=== PATIENT | female | born 1945 | race Caucasian/White ===

== ENCOUNTER 2017-10-22 13:43 | Inpatient (IN) | payer MEDICARE ==
[2017-10-22 17:29] LABS: ABS Basophils 0.1 10^3/ul (0-0.2); ABS Eosinophils 0 10^3/ul (0-0.6); ABS Lymphocytes 1.8 10^3/ul (1.0-4.8); ABS Monocytes 0.8 10^3/ul (0-0.8); ABS Neutrophils 8.3 10^3/ul (1.5-7.7); ABS Nucleated RBC 0 10^3/ul; Eosinophil % 0.4 % (0-6); Hematocrit 40 % (35-47); Hemoglobin 13.2 g/dl (12.0-16.0); Lymphocyte % 16.5 % (25-47); Mean Corpuscular HGB Conc 34 g/dl (31-36); Mean Corpuscular Hemoglobin 29 pg (27-31); Mean Corpuscular Volume 85 fL (80-97); Mean Platelet Volume 8.3 um3 (7.4-10.4); Nucleated Red Blood Cells % 0; Platelet Count 280 10^3/ul (150-450); Red Blood Count 4.62 10^6/ul (4.0-5.4); Red Cell Distribution Width 14 % (10.5-15)
[2017-10-22 17:47] LABS: EGFR Non-African American 69.7 (>60)
--- NOTE | 2017-10-22 17:48 | RAD ---
Indication: Small bowel obstruction CT of the abdomen and pelvis was performed in the oral or IV contrast administration. Coronal and sagittal reconstructed images were obtained. Lung bases demonstrate no pleural fluid, nodules or masses. Heart is of normal size without evidence of pericardial effusion. Liver is normal in size. No focal lesions or intrahepatic ductal dilatation is noted. Gallbladder demonstrates no calcified gallstones. No pericholecystic fluid or wall thickening is identified. Common duct is not dilated. Pancreas demonstrates no mass or pancreatic duct dilatation. The spleen is normal in size. No adrenal masses are noted. The kidneys demonstrates no definite hydronephrosis. No focal masses are noted. Atherosclerotic aorta without evidence of aneurysmal dilatation is noted. There are postoperative changes noted in the right lobe were quadrant. Dilated loops of small bowel are noted with a zone of transition arising from this area. Findings are consistent with small bowel obstruction. Diverticulosis without definite evidence of diverticulitis is noted. Appendix is visualized and is normal. IMPRESSION: Postoperative changes. There are dilated loops of small bowel noted with zone of transition presumably just to the right of midline. Normal appendix. No other masses or fluid collections are noted.
[2017-10-22 18:51] LABS: Urine Appearance Cloudy; Urine Blood 2+ (Negative); Urine Color Yellow; Urine Ketones Trace (Negative); Urine Protein 1+(30 mg/dL) (Negative); Urine Specific Gravity 1.027 (1.010-1.030); Urine Urobilinogen Positive (Negative)
[2017-10-22] MEDS ORDERED: Morphine VIAL* 4 MG/ML VIAL (1 ml vial) IV PRN ×2 (19:46→23:23)
[2017-10-22] MEDS ORDERED: Ondansetron INJ* 2 MG/ML VIAL IV PRN (20:04)
[2017-10-22] MEDS: NS 0.9% 1000 ML* 1,000 ML IV SCH ×2 (20:34→21:18)
--- NOTE | 2017-10-22 21:03 | ED ---
Ruiz Gates Thomas, scribed for Rubin Robles MD on 10/22/17 at 1738 . Abdominal Pain/Female - HPI Summary HPI Summary: The patient is a 70 year old female complaining of upper abdominal pain that began last night at 23:30. The pain comes in waves and it kept her up most of the night. The pain radiates to her back. The pain is worse when she lies down. She had some vomiting. The patient has a history of multiple obstructions, although she states that her current pain is somewhat different from her normal blockage pain. She notes that she has been belching today and she has passed some gas today. She last had a BM yesterday. - History of Current Complaint Chief Complaint: EDAbdPain Stated Complaint: ABD PAIN/VOMITING Time Seen by Provider: 10/22/17 16:50 Hx Obtained From: Patient Onset/Duration: Lasting Hours, Still Present Timing: Intermittent Episode Lasting - odilon comes in waves Severity Currently: Severe Pain Intensity: 8 Pain Scale Used: 0-10 Numeric Location: Other - Upper abd Radiates: Yes Radiates to: Back Associated Signs and Symptoms: Positive: Vomiting Allergies/Adverse Reactions: Allergies Allergy/AdvReac Type Severity Reaction Status Date / Time duloxetine [From Cymbalta] Allergy See Comment Verified 10/22/17 14:03 surgical tape Allergy Severe rash Uncoded 10/22/17 14:03 severe itching Home Medications: Home Medications Chlorthalidone TAB* [Hygroton TAB*] 12.5 mg PO DAILY 10/22/17 [History Confirmed 10/22/17] Cholecalciferol TAB* [Vitamin D TAB*] 1,000 unit PO DAILY 10/22/17 [History Confirmed 10/22/17] Levothyroxine TAB* [Synthroid TAB*] 50 mcg PO DAILY 10/22/17 [History Confirmed 10/22/17] Losartan TAB* [Cozaar TAB*] 50 mg PO DAILY 10/22/17 [History Confirmed 10/22/17] Magnesium Oxide [Magnesium] 250 mg PO DAILY 10/22/17 [History Confirmed 10/22/17 ] Omeprazole CAP* [Prilosec CAP* 20 MG] 20 mg PO DAILY 10/22/17 [History Confirmed 10/22/17] Turmeric [Curcumin] 1 cap PO DAILY 10/22/17 [History Confirmed 10/22/17] PMH/Surg Hx/FS Hx/Imm Hx Endocrine/Hematology History: Reports: Hx Thyroid Disease Denies: Hx Diabetes, Hx Unexplained Bleeding Cardiovascular History: Reports: Hx Hypertension - ON MEDICATION Denies: Hx Congestive Heart Failure, Hx Pacemaker/ICD, Other Cardiovascular Problems/Disorders Respiratory History: Denies: Hx Asthma GI History: Reports: Hx Diverticulosis, Hx Gall Bladder Disease - 05/15 convenient care said "[place]" sent her to [facility], Hx Gastrointestinal Bleed , Hx Hiatal Hernia - possibly, pt unsure, Hx Obstructive Bowel, Other GI Disorders - DIVERTICULITIS Denies: Hx Cirrhosis, Hx Crohn's Disease, Hx Irritable Bowel, Hx Jaundice, Hx Ileostomy, Hx Pyloric Stenosis, Hx Ulcer History: Denies: Hx Renal Disease Musculoskeletal History: Reports: Other Musculoskeletal History - occassional joint pain Sensory History: Reports: Hx Contacts or Glasses Denies: Hx Hearing Aid Opthamlomology History: Reports: Hx Contacts or Glasses Neurological History: Reports: Hx Headaches, Hx Migraine, Other Neuro Impairments/Disorders - pt reports sciatic pain at times Psychiatric History: Reports: Hx Anxiety, Hx Depression, Hx Post Traumatic Stress Disorder, Hx Inpatient Treatment - [facility], many yrs ago Denies: Hx Panic Disorder, Hx Schizophrenia, Hx Suicide Attempt, Hx Substance Abuse, Other Psychiatric Issues/Disorders - Surgical History Surgery Procedure, Year, and Place: HYSTERECTOMY, APPENDECTOMY,bowel resection, t&a Infectious Disease History: No Infectious Disease History: Denies: Hx Hepatitis, Traveled Outside the [place] in Last 30 Days - Family History Known Family History: Positive: Hypertension - Social History Alcohol Use: Occasionally Substance Use Type: Reports: Prescribed Smoking Status (MU): Former Smoker Review of Systems Negative: Fever Positive: Abdominal Pain - upper, Vomiting All Other Systems Reviewed And Are Negative: Yes Physical Exam - Summary Physical Exam Summary: Appearance: The patient is well-nourished in no acute distress and in no acute pain. Skin: The skin is warm and dry and skin color reflects adequate perfusion. HEENT: The head is normocephalic and atraumatic. The pupils are equal and reactive. The conjunctivae are clear and without drainage. Nares are patent and without drainage. Mouth reveals moist mucous membranes and the throat is without erythema and exudate. The external ears are intact. The ear canals are patent and without drainage. The tympanic membranes are intact. Neck: the neck is supple with full range of motion and non-tender. There are no carotid bruits. There is no neck vein distension. Respiratory: Chest is non-tender. Lungs are clear to auscultation and breath sounds are symmetrical and equal. Cardiovascular: Heart is regular rate and rhythm. There is no murmur or rub auscultated. There is no peripheral edema and pulses are symmetrical and equal. Abdomen: The abdomen is soft. She has some diffuse tenderness. There may be some rebound, but it is hard to tell. There are normal bowel sounds heard in all four quadrants and there is no organomegaly palpated. Musculoskeletal: There is no back tenderness noted. Extremities are non-tender with full range of motion. There is good capillary refill. There is no peripheral edema or calf tenderness elicited. Neurological: Patient is alert and oriented to person, place and time. The patient has symmetrical motor strength in all four extremities. Cranial nerves are grossly intact. Deep tendon reflexes are symmetrical and equal in all four extremities. Psychiatric: The patient has an appropriate affect and does not exhibit any anxiety or depression. Triage Information Reviewed: Yes Vital Signs On Initial Exam: Initial Vitals Temp Pulse Resp BP Pulse Ox 97.7 F 95 14 144/76 95 10/22/17 14:03 10/22/17 14:03 10/22/17 14:03 10/22/17 14:03 10/22/17 14:03 Vital Signs Reviewed: Yes Diagnostics - Vital Signs Vital Signs Temp Pulse Resp BP Pulse Ox 10/22/17 16:47 98.9 F 10/22/17 15:59 97.4 F 102 18 143/91 99 10/22/17 14:03 97.7 F 95 14 144/76 95 - Laboratory Lab Results: Lab Results 10/22/17 Range/Units 17:16 WBC 11.0 H (3.5-10.8) 10^3/ul RBC 4.62 (4.0-5.4) 10^6/ul Hgb 13.2 (12.0-16.0) g/dl Hct 40 (35-47) % MCV 85 (80-97) fL MCH 29 (27-31) pg MCHC 34 (31-36) g/dl RDW 14 (10.5-15) % Plt Count 280 (150-450) 10^3/ul MPV 8.3 (7.4-10.4) um3 Neut % (Auto) 75.1 (38-83) % Lymph % (Auto) 16.5 L (25-47) % [place] % (Auto) 6.9 (0-7) % Eos % (Auto) 0.4 (0-6) % Baso % (Auto) 1.1 (0-2) % Absolute Neuts (auto) 8.3 H (1.5-7.7) 10^3/ul Absolute Lymphs (auto) 1.8 (1.0-4.8) 10^3/ul Absolute Monos (auto) 0.8 (0-0.8) 10^3/ul Absolute Eos (auto) 0 (0-0.6) 10^3/ul Absolute Basos (auto) 0.1 (0-0.2) 10^3/ul Absolute Nucleated RBC 0 10^3/ul Nucleated RBC % 0 Result Diagrams: 10/22/17 17:16 10/22/17 17:16 Lab Statement: Any lab studies that have been ordered have been reviewed, and results considered in the medical decision making process. - CT CT Abdomen/Pelvis CT Interpretation: No Acute Changes - IMPRESSION: Postoperative changes. There are dilated loops of small bowel noted with zone of transition presumably just to the right of midline. Normal appendix. No other masses or fluid collections are noted. Dr. Robles has reviewed this report. CT Interpretation Completed By: Radiologist - EKG 20:12 Cardiac Rate: NL EKG Rhythm: Sinus Rhythm - at 81 BPM EKG Interpretation: RBBB. Re-Evaluation - Re-Evaluation First Eval Re-Evaluation Time: 20:16 Comment: Results discussed. Patient will be admitted to Dr. Ziegler. Abdominal Pain Fem Course/Dx - Course Course Of Treatment: MS. Villa has a history of SBO's and came in at the first sign this time. She was found to have an early SBO and will be admitted by the Hospitalist service for conservative treatment. - Diagnoses Provider Diagnoses: SBO (small bowel obstruction) - Provider Notifications Discussed Care Of Patient With: Adriana Ziegler Time Discussed With Above Provider: 20:16 Instructed by Provider To: Admit As Inpatient Discharge - Sign-Out/Discharge Documenting (check all that apply): Discharge - Patient is admitted to [facility] by Dr. Ziegler - Discharge Plan Condition: Stable Disposition: ADMITTED TO [facility] - Billing Disposition and Condition Condition: STABLE Disposition: HOSP-[facility] The documentation as recorded by the Ruiz samuels Thomas accurately reflects the service I personally performed and the decisions made by me, Rubin Robles MD.
--- NOTE | 2017-10-22 21:35 | HP ---
HISTORY AND PHYSICAL: DATE OF ADMISSION: 10/22/17 TIME OF EVALUATION: 7:45 p.m. PRIMARY CARE PHYSICIAN: Unknown at [facility]. HISTORY OF PRESENT ILLNESS: This is a 72-year-old female with history of small bowel resection in 1979 and multiple subsequent SBOs who presents today with left upper quadrant abdominal pain that woke her from sleep last night. She had an uneventful day yesterday and ate dinner after which she felt fine. She went to bed around 10 p.m. and awoke at 11 with wave-like sharp left upper quadrant abdominal pain that persisted throughout the night. She describes it as waxing and waning, crampy, unchanged with position, and she just could not get comfortable and could not sleep all night. Then early this morning, she experienced an episode of emesis that was not preceded by nausea and describes the emesis as undigested dinner from last night. Then today she had ongoing left-sided abdominal pain and occasional nausea. She vomited several times today and was unable to eat or drink all day. She also noted one episode of watery diarrhea. She came to the emergency department this afternoon for pain. A CT of abdomen and pelvis in the emergency department showed small bowel obstruction, so we were called for admission. At this time, Ms. Villa still complains of left-sided abdominal pain; however, she is not required any pain medicine or antiemetics since she has been in the emergency department. PAST MEDICAL HISTORY: 1. Hypothyroidism. 2. Hypertension. 3. GERD. 4. Small bowel obstruction x6. 5. Osteoporosis. PAST SURGICAL HISTORY: In she had peritonitis that required a small bowel resection. In 1985, she had a hysterectomy. HOME MEDICATIONS: 1. Chlorthalidone 12.5 mg daily. 2. Cholecalciferol 1000 units daily. 3. Levothyroxine 50 mcg daily. 4. Losartan 50 mg daily. 5. Mag ox 250 mg daily. 6. Omeprazole 20 mg daily. 7. Turmeric 1 cap daily. ALLERGIES: DULOXETINE and SURGICAL TAPE. SOCIAL HISTORY: She lives with her , Severino. Severino is her healthcare proxy and his phone number is [phone]. She does not smoke or drink alcohol. REVIEW OF SYSTEMS: Denies fevers, chills, weight loss, weight gain, melena, hematochezia, swelling, chest pain, shortness of breath. PHYSICAL EXAMINATION GENERAL: Alert, well appearing female, in no acute distress. VITAL SIGNS: Blood pressure 113/73, pulse ox 97% on room air, heart rate 80, temperature 98.9. HEENT: Pupils 4 mm bilaterally and reactive to light. Extraocular movements intact. No nystagmus. Dry oral mucosa. No pharyngeal exudate or erythema. NECK: No JVP. No cervical or supraclavicular lymphadenopathy. LUNGS: Clear bilaterally. No murmurs. CHEST: Regular rate and rhythm. PMI nondisplaced. ABDOMEN: Old healed midline laparotomy incision. Tenderness to light palpation diffusely, worst in the left upper quadrant with radiation to the right upper quadrant. She has voluntary guarding and no rebound. She does have bowel sounds in all 4 quadrants. No CVA tenderness. EXTREMITIES: No edema. NEUROLOGIC: Strength 5/5 throughout and sensation grossly intact. SKIN: No rashes. LABORATORY DATA: White blood cells 11.0 with 75% neutrophils, hemoglobin 13.2 , platelets 280. Sodium 143, potassium 3.8, chloride 104, bicarb 29, BUN 26, creatinine 0.81, glucose 115, CRP 20.38. UA +3 rbc's, +1 wbc, +[address] of abdomen and pelvis without contrast. Postoperative changes, dilated loops of small bowel with zone of transition presumably just to the right of the midline. ASSESSMENT AND PLAN: This is a 72-year-old female with history of small bowel resection and multiple subsequent small bowel obstructions that have been treated conservatively presenting with left upper quadrant abdominal pain, nausea, vomiting, and diarrhea, and is found to have a small bowel obstruction on CT. 1. Small bowel obstruction. For now, we will plan to treat conservatively with IV fluids, antiemetics and analgesia as needed. I have discussed the case with surgery and requested a consultation. She will need an NG tube if she continues to have nausea and vomiting. I suspect the etiology of her small bowel obstruction is adhesions from her prior abdominal surgeries. She does not have screening colonoscopies because she has been told they are too dangerous so certainly malignancy should remain on the differential, however given her history of adhesions and serial SBOs over the past 30 years, I suspect adhesions are the nidus for this SBO as well. Strict n.p.o. 2. Hypertension. Hold home meds while n.p.o. 3. Hypothyroidism. Hold home meds while n.p.o. 4. Diet. N.p.o. as above. 5. DVT prophylaxis. Lovenox subcutaneously. 6. Hematuria. This was incidentally found on urinalysis. An urine culture is pending. If her urine culture is unrevealing, she should have a repeat UA. 7. Disposition. Inpatient to the medical service with a Surgery consult. 8. Full code. TIME SPENT: Greater than 60 minutes were spent on this admission, over 30 minutes of that time was spent [id number] with the patient obtaining history and physical exam. [id number]/[facility] #: [id number] TATI
[2017-10-22] MEDS: Enoxaparin(*) 40 MG/0.4 ML SYR SUBCUT SCH (22:09)
[2017-10-22] MEDS ORDERED: Morphine VIAL* 4 MG/ML VIAL (1 ml vial) IV ONE (23:26)
[2017-10-23] MEDS: NS 0.9% 1000 ML* 1,000 ML IV SCH ×3 (04:55→20:50)
[2017-10-23 06:21] LABS: ABS Basophils 0 10^3/ul (0-0.2); ABS Eosinophils 0.1 10^3/ul (0-0.6); ABS Lymphocytes 2.7 10^3/ul (1.0-4.8); ABS Monocytes 0.4 10^3/ul (0-0.8); ABS Neutrophils 4.4 10^3/ul (1.5-7.7); ABS Nucleated RBC 0 10^3/ul; Eosinophil % 1.8 % (0-6); Hematocrit 32 % (35-47); Lymphocyte % 34.9 % (25-47); Mean Corpuscular HGB Conc 35 g/dl (31-36); Mean Corpuscular Hemoglobin 29 pg (27-31); Mean Corpuscular Volume 85 fL (80-97); Mean Platelet Volume 8.3 um3 (7.4-10.4); Nucleated Red Blood Cells % 0; Platelet Count 221 10^3/ul (150-450); Red Blood Count 3.75 10^6/ul (4.0-5.4); Red Cell Distribution Width 14 % (10.5-15); White Blood Count 7.7 10^3/ul (3.5-10.8)
[2017-10-23 06:39] LABS: EGFR Non-African American 94.9 (>60)
--- NOTE | 2017-10-23 09:57 | CONS ---
CC: Jeremias Olea MD CONSULTATION REPORT: DATE OF CONSULT: 10/23/17 HISTORY OF PRESENT ILLNESS: The patient is a 72-year-old female with a history of what sounds like p eritonitis from a bowel perforation in the , had a laparotomy with bowel resection and was in [facility] for almost 2 months, but subsequently recovered. She had a secondary surgery a few years later with another bowel resection and a hysterectomy. Since that time she has had, by her count 6, admissions for bowel obstruction, all of which have resolved with nonoperative therapy. These have b een spaced out at few year intervals. The current event started a little over 24 hours ago with abdominal pain, nausea, vomiting, and some loose stools. The pain was primarily in the upper abdomen. This was reminiscent of other bowel obstr uctions that she has had in the past. This morning, she was having less pain than she did on admissio n. She has passed a little bit of loose stool, but really no flatus. PHYSICAL EXAM: General: She is a well-developed, well-nourished female consistent with stated age. She does not appear acutely ill. Color is good. She is not diaphoretic. Abdomen: Slightly disten ded, not impressively so, it is soft. She is tender across the upper abdomen. There is a trace of t ympany, not very impressive. Bowel sounds are somewhat diminished. There is no peritonitis or guard ing. There are no palpable masses. There is a large midline incision somewhat hypertrophic going al l the way from pubis to xiphoid. DIAGNOSTIC STUDIES/LAB DATA: Her laboratory studies today show normalization of her white count and electrolytes are relatively normal. I have reviewed her CT scan as well. IMPRESSION: A 72-year-old female with prior laparotomy and bowel resection for peritonitis who has h ad multiple previous small bowel obstructions and has now returned with what appears to be another sm all bowel obstruction, almost definitely related to postoperative adhesions. Given that she has responded well to nonoperative therapy in the past, I think that it is reasonably likely to predict that that would happen again. Therefore, I recommend continued NPO and intravenous hydration and give her little more time for erlin l rest, and hopefully she will begin to pass flatus soon and will be able to start a diet. I do not think I would start a diet without her passing flatus. We will continue to follow her along with you. [id number]/[facility] #: [id number]
--- NOTE | 2017-10-23 11:11 | PN ---
Subjective Date of Service: 10/23/17 Interval History: Patient complains of continued pain in LUQ and LLQ. Patient states that the pain is diminished from yesterday and that this is more mild pain than with previous bowel obstructions she has had. Patient denies F/C, vomiting, dysuria, CP, SOB, or other pain. Patient has no appetite at this point and has not passed flatus. Family History: Unchanged from Admission Social History: Unchanged from Admission Past Medical History: Unchanged from Admission Objective Active Medications: Enoxaparin Sodium (Lovenox(*)) 40 mg SUBCUT Q24H [facility] Last Admin: 10/22/17 22:09 Dose: 40 mg Sodium Chloride (Ns 0.9% 1000 Ml*) 1,000 mls @ 125 mls/hr IV PER RATE [facility] Last Admin: 10/23/17 04:55 Dose: 125 mls/hr Morphine Sulfate (Morphine Vial*) 2 mg IV Q3H PRN PRN Reason: PAIN Last Admin: 10/22/17 23:30 Dose: 2 mg Ondansetron HCl (Zofran Inj*) 4 mg IV Q6H PRN PRN Reason: NAUSEA Vital Signs - 8 hr 10/23/17 10/23/17 10/23/17 03:50 07:42 08:00 Temperature 98.1 F 97.9 F Pulse Rate 84 71 Respiratory 16 14 18 Rate Blood Pressure 118/49 114/56 (mmHg) O2 Sat by Pulse 98 99 Oximetry Oxygen Devices in Use Now: None Appearance: Patient is a 72yo female who appears stated age and is sitting in the bed in [facility]. Eyes: No Scleral Icterus, PERRLA Ears/Nose/Mouth/Throat: NL Teeth, Lips, Gums, Clear Oropharnyx, Mucous Membranes Moist Neck: NL Appearance and Movements; NL JVP, Trachea Midline Respiratory: Symmetrical Chest Expansion and Respiratory Effort, Clear to Auscultation Cardiovascular: NL Sounds; No Murmurs; No JVD, RRR, No Edema Abdominal: No Hepatosplenomegaly, - - Normoactive bowel sounds, tenderness to palpation with voluntary guarding over LUQ and LLQ without rebound or referred pain. Lymphatic: No Cervical Adenopathy Extremities: No Edema, No Clubbing, Cyanosis Skin: No Rash or Ulcers, No Nodules or Sclerosis Neurological: Alert and Oriented x 3, NL Sensation, NL Muscle Strength and Tone , - - CN II-XII intact. Result Diagrams: 10/23/17 05:59 10/23/17 05:59 Additional Lab and Data: Lab Results Assess/Plan/Problems-Billing Assessment: Patient is a 72yo female with a PMH for multiple SBOs due to adhesions, HTN, GERD, who is here with recurrent SBO being managed conservatively. - Patient Problems (1) Small bowel obstruction due to adhesions Current Visit: Yes Status: Acute Code(s): K56.50 - INTESTNL ADHESIONS, UNSP TO PARTIAL VERSUS COMPLETE OBST SNOMED Code(s): 228075426 Comment: This is Patient's 7th small bowel obstruction. Appreciate surgical input. No indication for emergent surgery. Pain decreasing. No flatus at this time. Continue fluids, Antiemetics, and supportive care. NPO diet. (2) HTN (hypertension) Current Visit: Yes Status: Acute Code(s): I10 - ESSENTIAL (PRIMARY) HYPERTENSION SNOMED Code(s): 28224176 Comment: Normotensive, resume BP meds when not NPO. (3) GERD (gastroesophageal reflux disease) Current Visit: Yes Status: Acute Code(s): K21.9 - GASTRO-ESOPHAGEAL REFLUX DISEASE WITHOUT ESOPHAGITIS SNOMED Code(s): 903383272 Comment: Asymptomatic, Resume Omeprazole when able. (4) Hypothyroidism Current Visit: Yes Status: Acute Code(s): E03.9 - HYPOTHYROIDISM, UNSPECIFIED SNOMED Code(s): 77072787 Comment: Continue levothyroxine when able. (5) DVT prophylaxis Current Visit: Yes Status: Acute Code(s): LJH8741 - SNOMED Code(s): 311368649 Comment: Lovenox (6) Full code status Current Visit: Yes Status: Acute Code(s): Z78.9 - OTHER SPECIFIED HEALTH STATUS SNOMED Code(s): 503462800 Status and Disposition: Admitted inpatient.
[2017-10-23] MEDS ORDERED: Ketorolac INJ* 15 MG/ML 1 ML VIAL IV PUSH ONE (12:12)
[2017-10-23] MEDS: Enoxaparin(*) 40 MG/0.4 ML SYR SUBCUT SCH (19:38)
[2017-10-24 06:03] LABS: ABS Basophils 0 10^3/ul (0-0.2); ABS Eosinophils 0.1 10^3/ul (0-0.6); ABS Lymphocytes 2.3 10^3/ul (1.0-4.8); ABS Monocytes 0.4 10^3/ul (0-0.8); ABS Neutrophils 3.1 10^3/ul (1.5-7.7); ABS Nucleated RBC 0 10^3/ul; Eosinophil % 2.3 % (0-6); Hematocrit 32 % (35-47); Hemoglobin 10.9 g/dl (12.0-16.0); Lymphocyte % 38.5 % (25-47); Mean Corpuscular HGB Conc 35 g/dl (31-36); Mean Corpuscular Hemoglobin 29 pg (27-31); Mean Corpuscular Volume 85 fL (80-97); Mean Platelet Volume 8.2 um3 (7.4-10.4); Nucleated Red Blood Cells % 0.1; Platelet Count 226 10^3/ul (150-450); Red Blood Count 3.73 10^6/ul (4.0-5.4); Red Cell Distribution Width 14 % (10.5-15); White Blood Count 5.9 10^3/ul (3.5-10.8)
[2017-10-24] MEDS: NS 0.9% 1000 ML* 1,000 ML IV SCH (06:19)
[2017-10-24 06:20] LABS: EGFR Non-African American 100.5 (>60)
[2017-10-24] MEDS ORDERED: KCL 20 MEQ/100 ML IVPREMIX* 20 MEQ/100 ML BAG IV SCH (07:00)
[2017-10-24] MEDS ORDERED: Potassium Chloride IV* 40 MEQ in NS 0.9% 250 ML* 250 ML IVPB ONE (07:30)
[2017-10-24] MEDS ORDERED: NS 0.9% 1000 ML* 1,000 ML IV SCH (10:06)
--- NOTE | 2017-10-24 10:17 | PN ---
Progress Note - Progress Note Date of Service: 10/24/17 Note: HD#2 SBO Afeb, VS noted I<<O, good diuresis Passed some flatus, no stool. Has less pain. No appetite, but no N/V Abd: soft, much less tender, still slight distension, not tympanitic IMP: SBO, likely adhesive, seems to be clinically improving AXR pending this AM Advance diet when increased GI fxn
[2017-10-24] MEDS: Losartan TAB* 25 MG PO SCH (10:47)
[2017-10-24] MEDS: Omeprazole CAP* 20 MG PO SCH (10:48)
--- NOTE | 2017-10-24 12:09 | RAD ---
HISTORY: Small bowel obstruction COMPARISONS: CT dated October 22, 2017 VIEWS: Frontal supine and upright views of the abdomen. FINDINGS: BOWEL: There is a nonspecific bowel gas pattern, with nondilated small bowel gas noted. Gas is noted distally to the rectum. CALCULI: There are no abnormal calculi. BONES AND SOFT TISSUES: Mild degenerative changes are noted. OTHER FINDINGS: The lung bases are clear. There is no subphrenic gas. IMPRESSION: NONSPECIFIC BOWEL GAS PATTERN.
[2017-10-24] MEDS: Acetaminophen TAB* 325 MG PO PRN ×2 (13:04→21:11)
--- NOTE | 2017-10-24 15:31 | PN ---
Subjective Date of Service: 10/24/17 Interval History: Patient again has improvement in abdominal pain. Continued flatus but no BM. Poor oral intake but denies nausea. Denies F/C, N/V, CP, SOB, Dysuria, dizziness , palpitations, or other pain. Family History: Unchanged from Admission Social History: Unchanged from Admission Past Medical History: Unchanged from Admission Objective Active Medications: Acetaminophen (Tylenol Tab*) 650 mg PO Q6H PRN PRN Reason: PAIN Last Admin: 10/24/17 13:04 Dose: 650 mg Enoxaparin Sodium (Lovenox(*)) 40 mg SUBCUT Q24H [facility] Last Admin: 10/23/17 19:38 Dose: 40 mg Levothyroxine Sodium (Synthroid Tab*) 50 mcg PO 0600 [facility] Losartan Potassium (Cozaar Tab*) 50 mg PO DAILY [facility] Last Admin: 10/24/17 10:47 Dose: 50 mg Morphine Sulfate (Morphine Vial*) 2 mg IV Q3H PRN PRN Reason: PAIN Last Admin: 10/22/17 23:30 Dose: 2 mg Omeprazole (Prilosec Cap*) 20 mg PO 0730 [facility] Last Admin: 10/24/17 10:48 Dose: 20 mg Ondansetron HCl (Zofran Inj*) 4 mg IV Q6H PRN PRN Reason: NAUSEA Vital Signs - 8 hr 10/24/17 10/24/17 08:15 11:38 Temperature 97.5 F Pulse Rate 72 Respiratory 16 18 Rate Blood Pressure 175/86 (mmHg) O2 Sat by Pulse 100 Oximetry Oxygen Devices in Use Now: None Appearance: Patient is a 72yo female who appears stated age and is sitting in the bed in [facility]. Eyes: No Scleral Icterus, PERRLA Ears/Nose/Mouth/Throat: NL Teeth, Lips, Gums, Clear Oropharnyx, Mucous Membranes Moist Neck: NL Appearance and Movements; NL JVP, Trachea Midline Respiratory: Symmetrical Chest Expansion and Respiratory Effort, Clear to Auscultation Cardiovascular: NL Sounds; No Murmurs; No JVD, RRR, No Edema Abdominal: No Hepatosplenomegaly, - - Normoactive bowel sounds, non-distended, tenderness to palpation over LUQ. No rebound or guarding. Lymphatic: No Cervical Adenopathy Extremities: No Edema, No Clubbing, Cyanosis Skin: No Rash or Ulcers, No Nodules or Sclerosis Neurological: Alert and Oriented x 3, NL Sensation, NL Gait, NL Muscle Strength and Tone, - - CN II-XII intact. Result Diagrams: 10/24/17 05:48 10/24/17 05:48 Additional Lab and Data: Lab Results Assess/Plan/Problems-Billing Assessment: Patient is a 72yo female with a PMH for multiple SBOs due to adhesions, HTN, GERD, who is here with recurrent SBO being managed conservatively. - Patient Problems (1) Small bowel obstruction due to adhesions Current Visit: Yes Status: Acute Code(s): K56.50 - INTESTNL ADHESIONS, UNSP TO PARTIAL VERSUS COMPLETE OBST SNOMED Code(s): 303543004 Comment: This is Patient's 7th small bowel obstruction. Appreciate surgical input. No indication for emergent surgery. Pain decreasing. Passing Flatus. Antiemetics, and supportive care. Full Liquid diet, plan for advancement if continued increase in bowel function. (2) HTN (hypertension) Current Visit: Yes Status: Acute Code(s): I10 - ESSENTIAL (PRIMARY) HYPERTENSION SNOMED Code(s): 81167095 Comment: Hypertensive, fluids held. Resume home BP meds. (3) GERD (gastroesophageal reflux disease) Current Visit: Yes Status: Acute Code(s): K21.9 - GASTRO-ESOPHAGEAL REFLUX DISEASE WITHOUT ESOPHAGITIS SNOMED Code(s): 110417919 Comment: Asymptomatic, Resume Omeprazole. (4) Hypothyroidism Current Visit: Yes Status: Acute Code(s): E03.9 - HYPOTHYROIDISM, UNSPECIFIED SNOMED Code(s): 54118710 Comment: Continue levothyroxine. (5) Hematuria Current Visit: Yes Status: Acute Code(s): R31.9 - HEMATURIA, UNSPECIFIED SNOMED Code(s): 32003880 Comment: Microscopic Hematuria found incidentally. Would recommend outpatient follow up. (6) DVT prophylaxis Current Visit: Yes Status: Acute Code(s): UWP9149 - SNOMED Code(s): 098416072 Comment: Lovenox (7) Full code status Current Visit: Yes Status: Acute Code(s): Z78.9 - OTHER SPECIFIED HEALTH STATUS SNOMED Code(s): 309351842 Status and Disposition: Admitted inpatient.
[2017-10-24] MEDS: Enoxaparin(*) 40 MG/0.4 ML SYR SUBCUT SCH (20:59)
[2017-10-24] MEDS ORDERED: CMCS: Melatonin (NF) 3 MG TAB PO PRN (21:39)
[2017-10-25] MEDS ORDERED: Levothyroxine TAB* 50 MCG TAB PO SCH (06:00)
[2017-10-25] MEDS ORDERED: Omeprazole CAP* 20 MG PO SCH (07:30)
[2017-10-25 07:57] LABS: EGFR Non-African American 102.5 (>60)
[2017-10-25] MEDS ORDERED: Potassium Chloride IV* 40 MEQ in NS 0.9% 250 ML* 250 ML IVPB ONE (08:00)
[2017-10-25] MEDS ORDERED: KCL 20 MEQ/100 ML IVPREMIX* 20 MEQ/100 ML BAG IV SCH (08:00)
[2017-10-25] MEDS ORDERED: Cholecalciferol TAB* 1000 UNITS PO SCH (09:00)
[2017-10-25] MEDS ORDERED: Chlorthalidone TAB* 50 MG PO SCH (09:00)
[2017-10-25] MEDS: Omeprazole CAP* 20 MG PO SCH (09:35)
[2017-10-25] MEDS: Losartan TAB* 25 MG PO SCH (09:35)
[2017-10-25 16:28] VITALS: BP 152/78
--- NOTE | 2017-10-25 23:25 | DS ---
CC: Dr. Adriana Ziegler* DISCHARGE SUMMARY: DATE OF ADMISSION: 10/22/17 DATE OF DISCHARGE: 10/25/17 PRIMARY CARE PROVIDER: Jermaine Alcantara physician. MY ATTENDING WHILE IN THE HOSPITAL: Dr. Adriana Ziegler* (dictated by REYNALDO Rios). PRIMARY DISCHARGE DIAGNOSIS: Small bowel obstruction. SECONDARY DISCHARGE DIAGNOSES: 1. Hypothyroidism. 2. Hypertension. 3. Gastroesophageal reflux disease. 4. Osteoporosis. STUDIES DONE WHILE IN THE HOSPITAL: Abdomen and pelvis CT from 10/22/17 read as postoperative changes, dilated loops of small bowel noted with zone of transition presumably just to the right of the midline. No other masses or fluid collections are noted. Abdominal x-ray from 10/24/17 read as nonspecific bowel gas pattern. MEDICATIONS AT DISCHARGE: 1. Vitamin D 1000 units p.o. daily. 2. Omeprazole 20 mg p.o. daily. 3. Magnesium oxide 250 mg p.o. daily. 4. Chlorthalidone 12.5 mg p.o. daily. 5. Losartan 50 mg p.o. daily. 6. Levothyroxine 50 mcg p.o. daily. 7. Turmeric 1 cap p.o. daily. 8. Tylenol 650 mg p.o. q.6 hours as needed. New medications at discharge: None. Medications discontinued at discharge: None. HOSPITAL COURSE: This is a brief summary of the patient's presentation. For more details, please see the history and physical from Dr. Adriana Ziegler on . In brief, patient is a 72-year-old female with past medical history significant for the above as well as 6 prior small bowel obstructions. Patient presented to the emergency department after going to bed around 10 and waking up at 11 with left upper quadrant pain. It was described as waxing and waning and crampy. Patient then started vomiting, which stated that this consisted of undigested food before patient had persistent pain and nausea and was vomiting several other times. Patient has had one episode of small watery diarrhea. In the emergency department, patient's pain was improved and nausea was improved with medication. Patient was admitted to the hospital. Patient was made n.p.o. , started on fluids. Her medications were held. She was seen in consultation by Dr. Jeremias Olea of General Surgery. She was deemed not to be a surgical candidate. She has her previous small bowel obstruction that presented similarly and had all passed with conservative management. Patient's pain decreased. Her nausea decreased. She passed flatus. On 10/23/17, patient's diet was advanced to clear liquids. Patient's oral medications were resumed. Patient had an abdominal x-ray on 10/24/17 read as above. Throughout the day, patient was able to be transitioned to a full liquid diet. Patient was hypertensive while in the hospital likely due to medications being held and fluids. Fluids were stopped when patient was able to tolerate p.o. consistently. Patient had slight nausea and bloating after eating, but this resolved with walking. Patient had no other significant vital sign abnormalities. No signs of acute abdomen, but she had persistent moderate abdominal pain throughout her hospitalization, which was improving. Patient was amenable to discharge on 10/25/17. PHYSICAL EXAMINATION ON THE DAY OF DISCHARGE: General: The patient is a 72- year- old female who appears stated age and sitting comfortably in the bed, in no acute distress. Vital Signs: At the time of discharge, temperature 96.8, pulse rate 63, respiratory rate 15, oxygen saturation 100% on room air. HEENT: Head: Normocephalic, atraumatic. Sclerae anicteric. No conjunctival injection. Nasal mucosa moist. Oral mucosa moist. No pharyngeal erythema, discharge, or exudate. Neck: Supple, nontender. No lymphadenopathy. No carotid bruit auscultated. No JVD. Cardiac: Regular rate and rhythm. No clicks, murmurs, gallops, or rubs. Pulses 2+ in bilateral dorsalis pedis, posterior tibialis, and radial areas. Respiratory: Clear to auscultation bilaterally. No wheezes, rales, or rhonchi. Good air exchange bilaterally. Abdomen: Soft, tender to palpation in the left upper and lower quadrants. No guarding or rebound tenderness. Bowel sounds present and normoactive in all 4 quadrants. Normal bowel sounds without tinkles. No hepatosplenomegaly. No abdominal bruits auscultated. Genitourinary: No suprapubic or CVA tenderness. Skin: Clean, dry, and intact. No rash. Scars consistent with previous abdominal surgeries. Neuro: Cranial nerves II through XII intact. No focal deficits. Psychiatric: Pleasant and cooperative. LABORATORY DATA ON THE DAY OF DISCHARGE: Sodium 143, potassium 3.3, chloride 100, carbon dioxide 2.4, anion gap 9, BUN 6, creatinine 0.58, glucose 101, calcium 8.6. DISCHARGE PLAN: Patient will be discharged to home. Patient should continue with a soft, low residue diet and advanced as tolerated. Patient is in agreement with this plan. Patient should follow up with primary care provider within 1 week for general medical management and to ensure continuing resolution of her small bowel obstruction. Patient should avoid foods that may have previously provoked small bowel obstruction. If possible, patient should follow along with her surgeon for monitoring of her frequent small bowel obstructions. Patient should return to the hospital for inability to take p.o. intake, shortness of breath, chest pain, or other alarming symptoms. Patient should engage in activity as tolerated particularly after meals to aid in digestion. TIME SPENT: Approximately 60 minutes were spent on this discharge, 30 of which was spent in [id number] with the patient, obtaining history and physical, discussing treatment plan. REYNALDO RIOS [id number]/[facility] #: [id number] TATI
== END 2017-10-25 18:15 | disposition home or self-care (01) | DRG 390 ==
LOC: ED 13:43 → MED 19:46
PROVIDERS: ADMIT Internal Medicine; ATTEND Internal Medicine
DX: K56.50 Intestinal adhesions [bands], unspecified as to partial versus complete obstruction (principal); E03.9 Hypothyroidism, unspecified; I10 Essential (primary) hypertension; K21.9 Gastro-esophageal reflux disease without esophagitis; M81.0 Age-related osteoporosis without current pathological fracture; Z79.899 Other long term (current) drug therapy; Z88.8 Allergy status to other drugs, medicaments and biological substances; Z91.048 Other nonmedicinal substance allergy status; R31.9 Hematuria, unspecified
CPT/HCPCS: 36415; 74019; 74176; 80048; 80053; 81003; 81015; 83605; 83690; 83735; 85025; 86140; 87086; 93005; 99285; A9270-GY; J1650; J1885; J2270; J3480

== ENCOUNTER 2017-11-21 19:50 | Emergency (ER) | payer MEDICARE ==
[2017-11-21 20:04] VITALS: BP 142/69
--- NOTE | 2017-11-21 20:22 | UC ---
Brandin Gates Natalie, scribed for Tank Conley MD on 11/21/17 at 2018 . Complaint Female HPI - HPI Summary HPI Summary: The patient is a 72 y/o F presenting to [facility] c/o dysuria and frequent urination starting yesterday. Burning sensation occurs with urination. The pain is rated 9 /10 in severity. Pt denies fever, vomiting, and back pain. She has hx of bowel obstruction. No urinary infections in last 6 months. - History Of Current Complaint Chief Complaint: UCGU Stated Complaint: UTI Time Seen by Provider: 11/21/17 20:08 Hx Obtained From: Patient Onset/Duration: Sudden Onset, Lasting Days, Still Present Timing: Constant Severity Initially: Severe Severity Currently: Severe Pain Intensity: 9 Pain Scale Used: 0-10 Numeric Character: Burning Aggravating Factor(s): Urination Associated Signs And Symptoms: Negative: Fever, Back Pain, Vomiting(# Of Episodes =) - Allergies/Home Medications Allergies/Adverse Reactions: Allergies Allergy/AdvReac Type Severity Reaction Status Date / Time duloxetine [From Cymbalta] Allergy See Comment Verified 11/21/17 20:04 surgical tape Allergy Severe rash Uncoded 11/21/17 20:04 severe itching PMH/Surg Hx/FS Hx/Imm Hx Other Endocrine History: NEGATIVE: diabetes Other GI/ History: bowel obstruction - Surgical History Surgical History: Yes Surgery Procedure, Year, and Place: HYSTERECTOMY, APPENDECTOMY,bowel resection, t&a - Family History Known Family History: Positive: Hypertension - Social History Alcohol Use: Rare Substance Use Type: None Smoking Status (MU): Former Smoker - Immunization History Most Recent Influenza Vaccination: Never Most Recent Pneumonia Vaccination: 2018 Review of Systems Constitutional: Negative - fever Gastrointestinal: Negative - vomiting Genitourinary: Dysuria, Frequency - increased Musculoskeletal: Negative - back pain All Other Systems Reviewed And Are Negative: Yes Physical Exam Triage Information Reviewed: Yes Vital Signs: Initial Vital Signs Temp 98.5 F 11/21/17 19:58 Pulse 80 11/21/17 19:58 Resp 18 11/21/17 19:58 BP 142/69 11/21/17 19:58 Pulse Ox 100 11/21/17 19:58 Vital Signs Reviewed: Yes ENT Exam: Normal Neck: Positive: Supple Respiratory: Positive: Lungs clear, Normal breath sounds, No respiratory distress Cardiovascular: Positive: RRR, No Murmur Abdomen Description: Positive: Nontender, Soft. Negative: CVA Tenderness (R), CVA Tenderness (L) Musculoskeletal: Positive: ROM Intact Neurological: Positive: Alert, Muscle Tone Normal Psychological: Positive: Normal Response To Family Skin Exam: Normal Complaint Female Dx - Course Course Of Treatment: The patient is a 72 y/o F with dysuria and frequent urination starting yesterday. She will be discharged home. - Differential Dx/Diagnosis Provider Diagnoses: uti. hypertension Discharge - Sign-Out/Discharge Documenting (check all that apply): Discharge/Admit/Transfer - Discharge Plan Condition: Good Disposition: HOME Prescriptions: Cephalexin CAP* [Keflex CAP*] 500 mg PO TID #15 cap Patient Education Materials: Urinary Tract Infection in Women (ED), Hypertension (ED) Referrals: Vikas Matias DO [Primary Care Provider] - 2 Days - Billing Disposition and Condition Condition: GOOD Disposition: HOME The documentation as recorded by the Brandin samuels Natalie accurately reflects the service I personally performed and the decisions made by , Tank Conley MD.
== END 2017-11-21 20:25 | disposition home or self-care (01) ==
LOC: UCEAST 19:50
DX: N39.0 Urinary tract infection, site not specified (principal); I10 Essential (primary) hypertension; Z88.8 Allergy status to other drugs, medicaments and biological substances; Z87.891 Personal history of nicotine dependence
CPT/HCPCS: 87077; 87086; 87186; 99212; G0463

== ENCOUNTER 2018-02-28 09:56 | Day surgery (SDC) | payer MEDICARE ==
[~2018-02-28 09:56] MED LIST: Acetaminophen TAB* 325 MG PO PRN; Buffered Lidocaine 0.9% SYRIN* 5 ML/SYR SYRINGE INTRADERM ONE
[2018-02-28] MEDS ORDERED: fentaNYL* 50 MCG/ML 2 ML VIAL (100 MCG VIAL) ONE (11:02)
[2018-02-28] MEDS ORDERED: Midazolam* 1 MG/ML 2 ML VIAL (2 MG) ONE ×2 (11:02→11:26)
[2018-02-28 11:55] VITALS: BP 118/70
[2018-02-28] MEDS ORDERED: Neomycin/Polymy/Dex OPHTH.OIN* 3.5 GM ONE (12:54)
[2018-02-28] MEDS ORDERED: Cyclopentolate 1% OPTH.SOL* 2 ML BTL ONE (12:54)
[2018-02-28] MEDS ORDERED: Tetracaine 0.5% OPTH.SOL 4 ML* 1 DROP BTL ONE (12:54)
[2018-02-28] MEDS ORDERED: Lidocaine 1%* 5 ML VIAL ONE (12:54)
[2018-02-28] MEDS ORDERED: Phenylephrine 2.5% OPTH.SOL* 2 ML BTL ONE (12:54)
[2018-02-28] MEDS ORDERED: Ketorolac 0.5% OPHTH (NF) 0.5 % 5 ML BTL ONE (12:54)
[2018-02-28] MEDS ORDERED: Tropicamide 1% OPTH.SOL* BTL ONE (12:54)
--- NOTE | 2018-02-28 21:15 | OP ---
DATE OF OPERATION: 02/28/18 - [facility] DATE OF : 47 SURGEON: Anirudh Malone MD PEANUT GRADER: None. ANESTHESIA: Topical with intravenous sedation. PRE-OP DIAGNOSIS: Cataract with glaucoma, left eye. POST-OP DIAGNOSIS: Cataract with glaucoma, left eye. OPERATIVE PROCEDURE: Phacoemulsification, cataract extraction with posterior chamber intraocular lens implant, left eye, and CyPass implant, left eye. COMPLICATIONS: None. ESTIMATED BLOOD LOSS: None. DESCRIPTION OF PROCEDURE: The patient was brought to the operating room and received a drop of tetracaine in her left eye. The patient was prepped and draped in the usual sterile fashion for ophthalmic surgery and attention was directed to the left eye where a speculum was placed. Intravenous sedation was given. A paracentesis was created at the 5 o'clock position. 0.1 cc of 1% preservative-free lidocaine was injected into the anterior chamber followed by DisCoVisc. The eye was digitally stabilized while a 2.75-mm keratome was used to create a triplanar clear corneal incision at the 3 o'clock position. A continuous curvilinear capsulorrhexis was created with a cystotome and Utrata forceps. BSS on a cannula was used to hydrodissect the lens from the capsule. Phacoemulsification was performed in a [id number]-[id number]-kffnsqv technique to create 4 fragments, which were removed. Residual cortical material was removed with irrigation and aspiration. DisCoVisc was used to inflate the capsular bag. An AU00T0 20 diopter lens was introduced into the capsular bag. Supplemental DisCoVisc was used to deepen the anterior chamber and coat the surface of the cornea. The patient's head was rotated away from the surgeon and the microscope was rotated towards the surgeon. The gonioprism was placed on the surface of the eye. A CyPass on its snake charmer was introduced into the anterior chamber. Under direct visualization, the CyPass was introduced into the supraciliary space. The CyPass snake charmer and gonioprism were removed. The patient's head and the microscope were returned to a neutral position. Viscoelastic was removed from the eye using irrigation and aspiration. BSS on a cannula was used to hydrate the corneal stroma and seal the wound. At the end of the case, the pupil was round. The lens was centered and stable. The CyPass was stable in good position. The eye pressure appeared normal and the wound was watertight. Topical Maxitrol ointment was placed on the surface of the eye. The eye was closed, patched and shielded, and the patient was sent to recovery room in stable condition with postop instructions and followup appointment given. [id number]/[facility] #: [id number] MTDOrtega
== END 2018-02-28 12:04 | disposition home or self-care (01) ==
LOC: OREAST 09:56
PROVIDERS: ATTEND Ophthalmology
DX: H25.12 Age-related nuclear cataract, left eye (principal); H40.89 Other specified glaucoma; I10 Essential (primary) hypertension; I45.10 Unspecified right bundle-branch block; K21.9 Gastro-esophageal reflux disease without esophagitis; E03.9 Hypothyroidism, unspecified
CPT/HCPCS: A9270-GY; C1783; J2250; J3010; V2632

== ENCOUNTER 2018-03-07 06:25 | Day surgery (SDC) | payer MEDICARE ==
[2018-03-07] MEDS ORDERED: Midazolam* 1 MG/ML 2 ML VIAL (2 MG) ONE (07:13)
[2018-03-07] MEDS ORDERED: fentaNYL* 50 MCG/ML 2 ML VIAL (100 MCG VIAL) ONE (07:13)
[2018-03-07 08:12] VITALS: BP 129/74
--- NOTE | 2018-03-07 09:59 | OP ---
DATE OF OPERATION: 03/07/18 - [facility] DATE OF : 47 SURGEON: Anirudh Malone MD YOUTH ACCOMMODATION SUPPORT WORKER: None. ANESTHESIA: Topical with intravenous sedation. PRE-OP DIAGNOSIS: Cataract with glaucoma, right eye. POST-OP DIAGNOSIS: Cataract with glaucoma, right eye. OPERATIVE PROCEDURE: Phacoemulsification, cataract extraction with posterior chamber intraocular lens implant, and iStent implant right eye. COMPLICATIONS: None. ESTIMATED BLOOD LOSS: None. DESCRIPTION OF PROCEDURE: The patient was brought to the operating room and given intravenous sedation. A drop of tetracaine was placed in her right eye. The patient was prepped and draped in the usual sterile fashion for ophthalmic surgery and attention was directed to the right eye where a speculum was placed. A paracentesis was created at the 11 o'clock position. 0.1 cc of 1% preservative- free lidocaine was injected into the anterior chamber followed by DisCoVisc. The eye was digitally stabilized while a 2.75-mm keratome was used to create a triplanar clear corneal incision at the 9 o'clock position. A continuous curvilinear capsulorrhexis was created with a cystotome and Utrata forceps. BSS on a cannula was used to hydrodissect the lens from the capsule. Phacoemulsification was performed in a ckhmuu-cpr-ovhlhwd technique to create 4 fragments, which were removed. Residual cortical material was removed with irrigation and aspiration. The capsule was polished. DisCoVisc was used to inflate the capsular bag. An AU00T0 20.5 diopter lens was inserted into the capsular bag. Supplemental DisCoVisc was used to deepen the anterior chamber and coat the surface of the cornea. The patient's head was rotated away from the surgeon and the microscope was rotated towards the surgeon. A gonioprism was placed on the surface of the eye. An iStent on its auto washer was placed into the anterior chamber. Under direct visualization, the iStent was inserted into the nasal trabecular meshwork. The iStent auto washer and the gonioprism were removed. The patient's head and the microscope were returned to a neutral position. Irrigation and aspiration was performed to remove Viscoelastic from the eye. BSS on a cannula was used to hydrate the corneal stroma and seal the wound. At the end of the case, the pupil was round, the lens and iStent were stable, the eye pressure appeared normal and the wound was watertight. The speculum was removed and topical Maxitrol ointment was placed on the surface of the eye. The eye was closed, patched and shielded, and the patient was sent to recovery room in stable condition with postop instructions and followup appointment given. [id number]/[facility] #: [id number] MTDOrtega
[2018-03-07] MEDS ORDERED: Lidocaine 1%* 5 ML VIAL ONE (10:37)
[2018-03-07] MEDS ORDERED: Phenylephrine 2.5% OPTH.SOL* 2 ML BTL ONE (10:37)
[2018-03-07] MEDS ORDERED: Tetracaine 0.5% OPTH.SOL 4 ML* 1 DROP BTL ONE (10:37)
[2018-03-07] MEDS ORDERED: Tropicamide 1% OPTH.SOL* BTL ONE (10:37)
[2018-03-07] MEDS ORDERED: Neomycin/Polymy/Dex OPHTH.OIN* 3.5 GM ONE (10:37)
[2018-03-07] MEDS ORDERED: Ketorolac 0.5% OPHTH (NF) 0.5 % 5 ML BTL ONE (10:37)
[2018-03-07] MEDS ORDERED: Cyclopentolate 1% OPTH.SOL* 2 ML BTL ONE (10:37)
== END 2018-03-07 08:12 | disposition home or self-care (01) ==
LOC: OREAST 06:25
PROVIDERS: ATTEND Ophthalmology
DX: H25.11 Age-related nuclear cataract, right eye (principal); H40.89 Other specified glaucoma; I10 Essential (primary) hypertension; I45.10 Unspecified right bundle-branch block; E03.9 Hypothyroidism, unspecified; K21.9 Gastro-esophageal reflux disease without esophagitis
CPT/HCPCS: A9270-GY; C1783; J2250; J3010; V2632

== ENCOUNTER 2018-03-16 08:14 | Emergency (ER) | payer MEDICARE ==
--- OUTSIDE RECORDS SUMMARY | 2018-03-16 08:19 | XMS REPORT | Continuity of Care Document ---
:1945 External Reference #:[id number] Author Name Anirudh Malone M.D. 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 Active Onset: 08/29/2013 Nuclear senile cataract Sylvain Solano O.D. Active Onset: 08/29/2013 Vitreous degeneration Sylvain Solano O.D. Active Onset: 08/29/2013 Tear film insufficiency Sylvain Solano O.D. Active Family History Date Family Member(s) Problem(s) Comments General Cancer grandparent Father due to Lung Cancer () Father Unknown Mother Diabetes Mother Heart Disease Mother High BP Mother CVA Social History Type Date Description Comments Sex Unknown ETOH Use Rarely consumes alcohol Tobacco Use Start: Unknown End: Unknown Patient is a former smoker Smoking Status Reviewed: 03/08/18 Patient is a former smoker Allergies, Adverse Reactions, Alerts Description No Known Drug Allergies Medications Medication Date Status Form Strength Qnty SIG Indications Ordering Provider Vigamox 02/06 Active Solution 0.5% 9ml 1 drop drops Anriudh /Evelny left eye Kira, four times a M.D. day Ketorolac 02/06 Active Solution 0.5% 10ml 1 drops left Anirudh Tromethamine /2018 eye twice a Malone, day M.D. Pred Forte 02/06 Active Suspension 1% 10ml 1 drops left eye four Malone, times a day M.D. Latanoprost 12/05 Active Solution 0.005% 2.5un 1 drops both its eyes every Vicente, night OD Xiidra 11/10 Active Solution 5% 60uni 1gtt both ts eyes twice a Vicente, day OD Levothyroxine Active Tablets 25mcg take 1 Unknown Sodium /0000 tablet by mouth once daily Lorazepam Active Tablets 0.5mg take 1 Unknown /0000 tablet by mouth if needed for anxiety maximum daily dose of 2 Sulfasalazine Active Tablets 500mg take 1 Unknown /0000 tablet by mouth twice a day Rizatriptan Hx Tablets 10mg Unknown Benzoate Odt / Dispers - 08/20 Levothyroxine Hx Tablets 50mcg take 1 Unknown Sodium /0000 tablet by - mouth Before 08/20 Breakfast Meloxicam Hx Tablets 7.5mg Unknown /0000 - 08/20 Prednisone Hx Tablets 10mg take 4 Unknown /0000 tablets once - daily for 2 08/20 days 3 once daily for 2 days 2 on... Kenalog-40 Hx Suspension 40mg/ml Unknown / - 08/20 Hydrocodone/Logan Hx Tablets 5-500mg take 1 Unknown taminophen /0000 tablet by - mouth every 08/20 4 hours needed for pain maximum daily Ondansetron HCL Hx Tablets 8mg take 1 Unknown /0000 tablet by - mouth twice 08/20 a Doxycycline 00 Hx Capsules 100mg take 1 Unknown Hyclate /0000 capsule by - mouth twice 08/20 a Gabapentin Hx Capsules 100mg take 1 Unknown /0000 capsule by - mouth three 08/20 times a Trazodone HCL 00 Hx Tablets 50mg take 1 to 3 Unknown /0000 tablets by - mouth at 08/20 bedtime /2015 Rizatriptan /00 Hx Tablets 10mg Unknown Benzoate Odt /0000 Dispers - 08/20 Fluticasone Hx Suspension 50mcg/Act Unknown Propionate /0000 - 08/20 Lotemax Hx Suspension 0.5% instill 1 Unknown /0000 drop into - both eyes 08/20 three times a day Restasis Hx Emulsion 0.05% instill 1 Unknown /0000 drop into - both eyes 08/20 twice a day Sumatriptan 00 Hx Tablets 100mg take 1 Unknown Succinate /0000 tablet by - mouth 08/20 immediately may repeat after 2 hours maxim... Naproxen Hx Tablets 500mg take 1 Unknown /0000 tablet by - mouth With 08/20 First Dose /2015 Of Imitrex Metoprolol Hx Tablets 25mg take 1 Unknown Tartrate /0000 tablet by - mouth once 08/20 daily Gabapentin Hx Capsules 300mg take 1 Unknown /0000 capsule by - mouth three 08/20 times a day Ondansetron Odt Hx Tablets 4mg Dissolve 1 Unknown /0000 Dispers Tablet On - The Tongue 08/20 Every 6 To Hours as Needed For Vomit Oxycodone/Aceta Hx Tablets 5-325mg take 1 Unknown minophen /0000 tablet by - mouth every 08/20 4 to 6 hours if needed for pain maximum d Immunizations Description No Information Available Vital Signs Date Vital Result Comment 03/08/2018 9:24am Intraocular Pressure Right Eye 16 mmHg Intraocular Pressure Left Eye 12 mmHg 03/01/2018 9:44am Intraocular Pressure Left Eye 9 mmHg 01/25/2018 2:34pm Intraocular Pressure Right Eye 18 mmHg Intraocular Pressure Left Eye 18 mmHg Cornea Thickness Left Eye 522 m Cornea Thickness Right Eye 529 m Pachymetry adjusted IOP Right Eye +1 Pachymetry adjusted IOP Left Eye +1 12/05/2017 10:31am Intraocular Pressure Right Eye 16 mmHg Intraocular Pressure Left Eye 16 mmHg 11/10/2017 2:13pm Intraocular Pressure Right Eye 16 mmHg Intraocular Pressure Left Eye 16 mmHg 10/13/2016 3:32pm Intraocular Pressure Right Eye 17 mmHg Intraocular Pressure Left Eye 17 mmHg 08/20/2015 1:28pm Intraocular Pressure Right Eye 15 mmHg Intraocular Pressure Left Eye 15 mmHg 08/29/2013 10:12am Intraocular Pressure Right Eye 16 mmHg Intraocular Pressure Left Eye 16 mmHg Results Description No Information Available Procedures Date Code Description Status 01/25/2018 76130 Ophthalmic Biometry By Partial Coherence Interferometry Completed W/Intra 01/25/2018 91171 Corneal Pachymetry, Unilateral/Bilateral Completed 12/05/2017 66872 Oct, Optic Nerve Completed 12/05/2017 65969 Visual Field Exam Extended, Unilateral Or Bilateral Completed 12/05/2017 18116 Eye Exam Est Intermediate Completed 11/10/2017 39778 Oct, Optic Nerve Completed 11/10/2017 61631 Eye Exam Est Intermediate Completed 10/13/2016 47193 Eye Exam Est Comprehensive Completed 10/13/2016 45705 Oct Retina Completed 10/13/2016 46302 Ophthalmoscopy Subsequent Completed 08/20/2015 38637 Ophthalmoscopy Subsequent Completed 08/20/2015 67190 Refraction Completed 08/20/2015 64879 Eye Exam Est Comprehensive Completed 12/26/2013 55469 Eye Exam Est Intermediate Completed 09/06/2013 54514 Close Lacrimal Punctum, Plug Completed 08/29/2013 80117 Refraction Completed 08/29/2013 86818 Eye Exam Est Comprehensive Completed Encounters Type Date Location Provider Dx Diagnosis Office Visit 01/25/2018 Main Office Anirudh Malone, H25.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 The patient was advised that the eye tolerated the surgery well without complications. Patient was given eye drop schedule and implant card.The patient was told to wear an eye shield QHS for one week and sunglasses daily. The patient was also advised to contact us immediately if new symptoms or visual changes are noted such as pain , worsening redness, flashes, floaters or decrease in vision.Follow up:The patient is to return in one week to follow up after cataract surgery and sooner if needed.
--- OUTSIDE RECORDS SUMMARY | 2018-03-16 08:19 | XMS REPORT | Continuity of Care Document ---
:1945 External Reference #:[id number] Author Name Anirudh Malone M.D. Address [address] [place] [address] Care Team Providers Name Role Phone Aria Edward MD Care Team Information Tool Liaison Unavailable Vikas Matias DO Primary Care Physician Unavailable Payers Type Date Identification Numbers Payment Provider Subscriber Policy Number: [id number] [place] PayID: [id number] [address] [place] [address] Effective: 2013 Policy Number: [facility] Angela Villa [id number] Options PayID: [id number] [address] [place] [address] Advance Directives Description No Information Available Problems [...] is a former smoker Smoking Status Reviewed: 03/01/18 Patient is a former smoker Allergies, Adverse Reactions, Alerts Description No Known Drug Allergies Medications Medication Date Status Form Strength Qnty SIG Indications Ordering Provider Vigamox 02/06 Active Solution 0.5% 9ml 1 drop drops Anirudh /Evelyn left pato Malone, four times a M.D. day Ketorolac 02/06 [...] Available Vital Signs Date Vital Result Comment 03/01/2018 9:44am Intraocular Pressure Left Eye 9 [...] Available Procedures Date Code Description Status 01/25/2018 40097 Ophthalmic Biometry By Partial Coherence Interferometry Completed W/Intra 01/25/2018 01670 Corneal Pachymetry, Unilateral/Bilateral Completed 12/05/2017 13900 Oct, Optic Nerve Completed 12/05/2017 92490 Visual Field Exam Extended, Unilateral Or Bilateral Completed 12/05/2017 73373 Eye Exam Est Intermediate Completed 11/10/2017 52951 Oct, Optic Nerve Completed 11/10/2017 78745 Eye Exam Est Intermediate Completed 10/13/2016 10297 Eye Exam Est Comprehensive Completed 10/13/2016 41103 Oct Retina Completed 10/13/2016 46211 Ophthalmoscopy Subsequent Completed 08/20/2015 71826 Ophthalmoscopy Subsequent Completed 08/20/2015 20994 Refraction Completed 08/20/2015 07510 Eye Exam Est Comprehensive Completed 12/26/2013 94699 Eye Exam Est Intermediate Completed 09/06/2013 11347 Close Lacrimal Punctum, Plug Completed 08/29/201303956 Refraction Completed 08/29/2013 18943 Eye Exam Est Comprehensive Completed Encounters Type Date Location Provider Dx Diagnosis Office Visit 01/25/2018 Main Office Anirudh Malone, H25.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 at Main Knozkd5803/07/2018 7:45 am - Anirudh Malone M.D. at Main Idblut4603/01/2018 - Anirudh Malone M.D.Z48.89 Encounter for other [...] or visual changes are noted such as pain, worsening redness, flashes, floaters or decrease in vision.Follow up:The patient is to return in one week to follow up after cataract surgery and sooner if needed.
--- OUTSIDE RECORDS SUMMARY | 2018-03-16 08:19 | XMS REPORT | Continuity of Care Document ---
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 Vikas Matias DO Primary Care Physician Unavailable Payers Type Date Identification Numbers Payment Provider Subscriber Policy Number: [id number] [place] Villa PayID: [id number] [address] [place] [address] Effective: 2013 Policy Number: [facility] Angela Villa [id number] Options PayID: [id number] [address] [place] [address] Advance Directives Description No Information Available Problems [...] is a former smoker Smoking Status Reviewed: 03/14/18 Patient is a former smoker Allergies, Adverse Reactions, Alerts Description No Known Drug Allergies Medications Medication Date Status Form Strength Qnty SIG Indications Ordering Provider Ketorolac 02/06 Active Solution 0.5% 10ml 1 drops left Anirudh Tromethmarcelo eye twice a ulysses Malone M.D. Pred Forte 02/06 Active Suspension 1% 10ml 1 drops left eye four Malone, times a day M.D. Latanoprost 12/05 Active Solution 0.005% 2.5un 1 drops both its eyes every Vicente, night OD Xiidra 11/10 Active Solution 5% 60uni 1gtt both ts eyes twice a Vicente, day OD Levothyroxine 00/00 Active Tablets 25mcg take 1 Unknown Sodium /0000 tablet by mouth once daily Lorazepam Active Tablets 0.5mg take 1 Unknown /0000 tablet by mouth if needed for anxiety maximum daily dose of 2 Sulfasalazine Active Tablets 500mg take 1 Unknown /0000 tablet by mouth twice a day Vigamox 02/06 Hx Solution 0.5% 9ml 1 drop drops left eye Malone, - four times a M.D. Rizatriptan /00 Hx Tablets 10mg Unknown Benzoate Odt /0000 Dispers - 08/20 Levothyroxine 00/00 Hx Tablets 50mcg take 1 Unknown Sodium /0000 tablet by - mouth Before 08/20 Breakfast Meloxicam 00/ Hx Tablets 7.5mg Unknown /0000 - 08/20 Prednisone 00/00 Hx Tablets 10mg take 4 Unknown /0000 tablets once - daily for 2 08/20 days 3 once daily for 2 days 2 on... Kenalog-40 Hx Suspension 40mg/ml Unknown /0000 - 08/20 Hydrocodone/Logan 00 Hx Tablets 5-500mg take 1 Unknown taminophen /0000 tablet by - mouth every 08/20 4 hours needed for pain maximum daily Ondansetron HCL 0000 Hx Tablets 8mg take 1 Unknown /0000 tablet by - mouth twice 08/20 a /2015 Doxycycline 00/00 Hx Capsules 100mg take 1 Unknown Hyclate /0000 capsule by - mouth twice 08/20 a /2015 Gabapentin 00/00 Hx Capsules 100mg take 1 Unknown /0000 capsule by - mouth three 08/20 times a day Trazodone HCL 00/00 Hx Tablets 50mg take 1 to 3 Unknown /0000 tablets by - mouth at 08/20 bedtime /2015 Rizatriptan 00/00 Hx Tablets 10mg Unknown Benzoate Odt /0000 Dispers - 08/20 Fluticasone 00 Hx Suspension 50mcg/Act Unknown Propionate /0000 - 08/20 Lotemax Hx Suspension 0.5% instill 1 Unknown /0000 drop into - both eyes 08/20 three times a day Restasis 00/ Hx Emulsion 0.05% instill 1 Unknown /0000 drop into - both eyes 08/20 twice a day Sumatriptan 00 Hx Tablets 100mg take 1 Unknown Succinate /0000 tablet by - mouth 08/20 may repeat after 2 hours maxim... Naproxen 00 Hx Tablets 500mg take 1 Unknown /0000 [...] mouth every 08/20 4 to 6 hours /2015 if needed for pain maximum d Immunizations Description No Information Available Vital Signs Date Vital Result Comment 03/14/2018 9:12am Intraocular Pressure Right Eye 14 mmHg Intraocular Pressure Left Eye 12 mmHg 03/08/2018 9:24am Intraocular Pressure Right Eye 16 [...] Available Procedures Date Code Description Status 01/25/2018 15859 Ophthalmic Biometry By Partial Coherence Interferometry Completed W/Intra 01/25/2018 76712 Corneal Pachymetry, Unilateral/Bilateral Completed 12/05/2017 28574 Oct, Optic Nerve Completed 12/05/2017 34671 Visual Field Exam Extended, Unilateral Or Bilateral Completed 12/05/2017 50310 Eye Exam Est Intermediate Completed 11/10/2017 70898 Oct, Optic Nerve Completed 11/10/2017 08652 Eye Exam Est Intermediate Completed 10/13/2016 69794 Eye Exam Est Comprehensive Completed 10/13/2016 76562 Oct Retina Completed 10/13/2016 71694 Ophthalmoscopy Subsequent Completed 08/20/2015 24220 Ophthalmoscopy Subsequent Completed 08/20/2015 25650 Refraction Completed 08/20/2015 78042 Eye Exam Est Comprehensive Completed 12/26/2013 81320 Eye Exam Est Intermediate Completed 09/06/2013 79465 Close Lacrimal Punctum, Plug Completed 08/29/2013 12321 Refraction Completed 08/29/2013 09297 Eye Exam Est Comprehensive Completed Encounters Type Date Location Provider Dx Diagnosis Office Visit 01/25/2018 Main Office Anirudh Malone, H25.13 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
[2018-03-16 08:20] VITALS: BP 155/80
--- NOTE | 2018-03-16 09:05 | UC ---
Complaint Female HPI - HPI Summary HPI Summary: 73 year old female with UTI sx x 1 day and concerned. took pyridium prior to arrival. no fever. no n/v/d and no allergy to abx. had UTI last month and sx did resolve. has these UTI after having sex . - History Of Current Complaint Chief Complaint: UCGU Stated Complaint: URINARY COMPLAINT Time Seen by Provider: 03/16/18 08:24 Hx Obtained From: Patient Onset/Duration: Sudden Onset Pain Intensity: 3 Aggravating Factor(s): Urination Alleviating Factor(s): Nothing Related Hx: Similar Episode/Dx as: - Allergies/Home Medications Allergies/Adverse Reactions: Allergies Allergy/AdvReac Type Severity Reaction Status Date / Time codeine Allergy Hallucinati Verified 03/07/18 06:33 ons duloxetine [From Cymbalta] Allergy See Comment Verified 03/07/18 06:33 surgical tape Allergy Severe rash Uncoded 03/07/18 06:33 severe itching PMH/Surg Hx/FS Hx/Imm Hx Previously Healthy: Yes Endocrine History: Hypothyroidism Cardiovascular History: Hypertension GI/ History: Gastroesophageal Reflux - Surgical History Surgical History: Yes Surgery Procedure, Year, and Place: HYSTERECTOMY, APPENDECTOMY,bowel resection, t&a - Family History Known Family History: Positive: Hypertension - Social History Occupation: Retired Lives: With Family Alcohol Use: Rare Substance Use Type: None Smoking Status (MU): Former Smoker Amount Used/How Often: 1 PPD X OFF AND ON 20 YEARS Have You Smoked in the Last Year: No When Did the Patient Quit Smoking/Using Tobacco: 30+ YEARS AGO - Immunization History Most Recent Influenza Vaccination: Never Most Recent Pneumonia Vaccination: 2018 Review of Systems Genitourinary: Dysuria, Frequency, Urgency Is Patient Immunocompromised?: No All Other Systems Reviewed And Are Negative: Yes Physical Exam Triage Information Reviewed: Yes Appearance: Well-Appearing, No Pain Distress, Well-Nourished Vital Signs: Initial Vital Signs Temp 97.8 F 03/16/18 08:15 Pulse 76 03/16/18 08:15 Resp 16 03/16/18 08:15 BP 155/80 03/16/18 08:15 Pulse Ox 100 03/16/18 08:15 Eye Exam: Normal ENT Exam: Normal Dental Exam: Normal Neck exam: Normal Neck: Positive: 1 Respiratory Exam: Normal Cardiovascular Exam: Normal Abdominal Exam: Normal Abdomen Description: Negative: CVA Tenderness (R), CVA Tenderness (L), Distended Musculoskeletal Exam: Normal Neurological Exam: Normal Psychological Exam: Normal Skin Exam: Normal Complaint Female Dx - Course Course Of Treatment: no bactrim d/t losartan use. start macrobid. f/u with PCP . consider probiotics as well. consider discussing prophylactic abx after sexual intercourse with PCP to preven these in the future - Differential Dx/Diagnosis Differential Diagnosis/HQI/PQRI: Urinary Tract Infection Provider Diagnoses: UTI. Hypertension : f/u with PCP Discharge - Sign-Out/Discharge Documenting (check all that apply): Patient Departure All imaging exams completed and their final reports reviewed: No Studies - Discharge Plan Condition: Good Disposition: HOME Prescriptions: Nitrofurantoin Monohyd/M-Cryst [Macrobid 100 mg Capsule] 100 mg PO 14 #7 cap Patient Education Materials: Urinary Tract Infection in Older Adults (ED) Referrals: Vikas Matias DO [Primary Care Provider] - 5 Days - Billing Disposition and Condition Condition: GOOD Disposition: Home
== END 2018-03-16 09:15 | disposition home or self-care (01) ==
LOC: UCEAST 08:14
DX: N39.0 Urinary tract infection, site not specified (principal); I10 Essential (primary) hypertension; Z87.891 Personal history of nicotine dependence; Z88.5 Allergy status to narcotic agent; Z91.09 Other allergy status, other than to drugs and biological substances; Z88.8 Allergy status to other drugs, medicaments and biological substances
CPT/HCPCS: 87086; 99212; G0463

== ENCOUNTER 2018-04-17 16:12 | Emergency (ER) | payer MEDICARE ==
--- OUTSIDE RECORDS SUMMARY | 2018-04-17 16:18 | XMS REPORT | Continuity of Care Document ---
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 Vikas Matias DO Primary Care Physician Unavailable Payers Type Date Identification Numbers Payment Provider Subscriber Policy Number: [id number] [place] Angela Villa PayID: [id number] [address] [place] [address] Effective: 2013 Policy Number: [facility] Angela Villa [id number] Options PayID: [id number] [address] [place] [address] Advance Directives Description No Information Available Problems [...] is a former smoker Smoking Status Reviewed: 04/11/18 Patient is a former smoker Allergies, Adverse Reactions, Alerts Description No Known Drug Allergies Medications Medication Date Status Form Strength Qnty SIG Indications Ordering Provider Xiidra 11/10 Active Solution 5% 60uni 1gtt both ts eyes twice a Vicente, day OD Levothyroxine 00/00 Active Tablets 25mcg take 1 Unknown Sodium /0000 tablet by mouth once daily Lorazepam 0000 Active Tablets 0.5mg take 1 Unknown /0000 tablet by mouth if needed for anxiety maximum daily dose of 2 Sulfasalazine Active Tablets 500mg take 1 Unknown /0000 tablet by mouth twice a day Vigamox 02/06 Hx Solution 0.5% 9ml 1 drop drops left eye Malone, - four times a M.D. Ketorolac 02/06 Hx Solution 0.5% 10ml 1 drops left Tromethamine eye twice a Malone, - day M.D. 04/11 Pred Forte 02/06 Hx Suspension 1% 10ml 1 drops left eye four Malone, - times a day M.D. 04/11 Latanoprost 12/05 Hx Solution 0.005% 2.5un 1 drops both its eyes every Vicente, - night OD 04/11 Rizatriptan Hx Tablets 10mg Unknown Benzoate Odt /0000 Dispers - 08/20 Levothyroxine Hx Tablets 50mcg take 1 Unknown Sodium /0000 tablet by - mouth Before 08/20 Breakfast Meloxicam 00 Hx Tablets 7.5mg Unknown /0000 - 08/20 Prednisone 0000 Hx Tablets 10mg take 4 Unknown /0000 tablets once - daily for 2 08/20 days 3 once daily for 2 days 2 on... Kenalog-40 Hx Suspension 40mg/ml Unknown /0000 - 08/20 Hydrocodone/Logan Hx Tablets 5-500mg take 1 Unknown taminophen /0000 tablet by - mouth every 08/20 4 hours needed for pain maximum daily Ondansetron HCL Hx Tablets 8mg take 1 Unknown /0000 tablet by - mouth twice 08/20 a /2015 Doxycycline 00/00 Hx Capsules 100mg take 1 Unknown Hyclate /0000 capsule by - mouth twice 08/20 a /2015 Gabapentin /00 Hx Capsules 100mg take 1 Unknown /0000 capsule by - mouth three 08/20 times a day Trazodone HCL 0000 Hx Tablets 50mg take 1 to 3 Unknown /0000 tablets by - mouth at 08/20 bedtime /2015 Rizatriptan 00/00 Hx Tablets 10mg Unknown Benzoate Odt /0000 Dispers - 08/20 Fluticasone Hx Suspension 50mcg/Act Unknown Propionate /0000 - 08/20 Lotemax Hx Suspension 0.5% instill 1 Unknown /0000 drop into - both eyes 08/20 three times a day Restasis 00 Hx Emulsion 0.05% instill 1 Unknown /0000 drop into - both eyes 08/20 twice a day Sumatriptan Hx Tablets 100mg take 1 Unknown Succinate [...] Information Available Procedures Date Code Description Status 02/28/2018 86714 Extracapsular Cataract Extraction W/Intraocular Lens Completed 02/28/2018 0474T Insertion Of Anterior Segment Aqueous Drainage Device Completed 01/25/2018 93589 Ophthalmic Biometry By Partial Coherence Interferometry Completed W/Intra 01/25/2018 73983 Corneal Pachymetry, Unilateral/Bilateral Completed 12/05/2017 73074 Oct, Optic Nerve Completed 12/05/2017 33010 Visual Field Exam Extended, Unilateral Or Bilateral Completed 12/05/2017 25802 Eye Exam Est Intermediate Completed 11/10/2017 52308 Oct, Optic Nerve Completed 11/10/2017 42299 Eye Exam Est Intermediate Completed 10/13/2016 09984 Eye Exam Est Comprehensive Completed 10/13/2016 55253 Oct Retina Completed 10/13/2016 45798 Ophthalmoscopy Subsequent Completed 08/20/2015 66581 Ophthalmoscopy Subsequent Completed 08/20/2015 32908 Refraction Completed 08/20/2015 42867 Eye Exam Est Comprehensive Completed 12/26/2013 85122 Eye Exam Est Intermediate Completed 09/06/2013 89673 Close Lacrimal Punctum, Plug Completed 08/29/2013 02363 Refraction Completed 08/29/2013 80898 Eye Exam Est Comprehensive Completed Encounters Type Date Location Provider Dx Diagnosis Office Visit 01/25/2018 Main Office Anirudh Malone, H25.13 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
[2018-04-17] MEDS ORDERED: Ibuprofen TAB* 600 MG PO ONE (17:55)
--- NOTE | 2018-04-17 17:57 | RAD ---
Indication: Left elbow injury. 4 views of the left elbow are reviewed. There is no fracture or dislocation. There is no other bone or joint abnormality noted. No joint effusion is noted. IMPRESSION: No fracture of the left elbow is noted.
--- NOTE | 2018-04-17 17:58 | RAD ---
Indication: Left wrist injury 3 views of the wrist demonstrates no fracture. No other bone or joint abnormality is identified. IMPRESSION: NO FRACTURE OF THE WRIST IS NOTED.
--- NOTE | 2018-04-17 17:58 | RAD ---
Indication: Right foot injury after fall. 3 views of the right foot demonstrates no fracture or dislocation. No other bone or joint abnormality is identified. IMPRESSION: No fracture of the right foot is noted.
--- NOTE | 2018-04-17 17:59 | RAD ---
Indication: Left knee pain. 4 views of left knee demonstrates no fracture. No joint effusion is noted. IMPRESSION: No fracture of left knee is noted.
--- NOTE | 2018-04-17 18:29 | UC ---
Upper Extremity HPI - HPI Summary HPI Summary: 73-year-old woman comes in after a fall with a complaint of left wrist hand and elbow pain. Also complaint of left knee and right great toe distal foot pain. Patient tripped and fell and landed on her left side. Follow-up in today. She had a hard time getting of her helped her get up. The left hand and wrist at the greatest of pain. She has been a range of motion of the left hand and wrist and the left knee. The knee hurts most on the lateral aspect. Her right foot she kicked something with her great toe and her great toe and distal metatarsal hurt the most. Denies other injuries. - History of Current Complaint Chief Complaint: UCUpperExtremity Stated Complaint: ARM AND KNEE INJURY Time Seen by Provider: 04/17/18 17:34 Hx Last Menstrual Period: NA Pain Intensity: 9 - Allergies/Home Medications Allergies/Adverse Reactions: Allergies Allergy/AdvReac Type Severity Reaction Status Date / Time codeine Allergy Hallucinati Verified 04/17/18 16:35 ons duloxetine [From Cymbalta] Allergy See Comment Verified 04/17/18 16:35 surgical tape Allergy Severe rash Uncoded 04/17/18 16:35 severe itching PMH/Surg Hx/FS Hx/Imm Hx Endocrine History: Hypothyroidism Cardiovascular History: Hypertension GI/ History: Gastroesophageal Reflux - Surgical History Surgical History: Yes Surgery Procedure, Year, and Place: HYSTERECTOMY, APPENDECTOMY,bowel resection, t&a - Family History Known Family History: Positive: Hypertension - Social History Alcohol Use: Rare Substance Use Type: None Smoking Status (MU): Former Smoker Amount Used/How Often: 1 PPD X OFF AND ON 20 YEARS Have You Smoked in the Last Year: No When Did the Patient Quit Smoking/Using Tobacco: 30+ YEARS AGO - Immunization History Most Recent Influenza Vaccination: Never Most Recent Pneumonia Vaccination: 2018 Review of Systems Constitutional: Negative Skin: Other - SEE HPI Eyes: Negative ENT: Negative Respiratory: Negative Cardiovascular: Negative Gastrointestinal: Negative Motor: Other - SEE HPI Neurovascular: Negative Musculoskeletal: Other: - SEE HPI Neurological: Negative Psychological: Negative Is Patient Immunocompromised?: No All Other Systems Reviewed And Are Negative: Yes Physical Exam Triage Information Reviewed: Yes Appearance: Well-Appearing, Well-Nourished, Pain Distress - MILD Vital Signs: Initial Vital Signs Temp 98.1 F 04/17/18 16:29 Pulse 70 04/17/18 16:29 Resp 18 04/17/18 16:29 BP 173/82 04/17/18 16:29 Pulse Ox 99 04/17/18 16:29 Vital Signs Reviewed: Yes Eye Exam: Normal Eyes: Positive: Conjunctiva Clear Neck exam: Normal Neck: Positive: Supple Respiratory: Positive: No respiratory distress Musculoskeletal: Positive: Other: - The left wrist is most tender to palpation over the distal ulna and the base of the thumb and through the second metacarpal and into the proximal second finger. There is ecchymosis in these areas as described. The elbow was full range of motion minimal tenderness to palpation. Normal radial pulses normal capillary refill no sensation deficit. Decreased range of motion secondary to pain of the index finger. The left knee is tender to palpation the lateral aspect it's stable to exam there is no swelling negative Jose's. Right great toe and distal first metatarsal are tender to palpation and there ecchymotic. There is good range of motion in the toes. Ankle is nontender to palpation. Neurological Exam: Normal Neurological: Positive: Alert, Muscle Tone Normal Psychological Exam: Normal Psychological: Positive: Normal Response To Family, Age Appropriate Behavior Skin: Positive: Other - Ecchymosis of the left wrist and the hand. Upper Extremity Course/Dx - Course Course Of Treatment: Order Information: KNEE LEFT 4+ VWS. Accession Number: [id number]. CPT: 52569. Indication: Left knee pain. 4 views of left knee demonstrates no fracture. No joint effusion is noted. IMPRESSION: No fracture of left knee is noted. ____. <Electronically signed by Lisa Merino MD in OV> 04/17/18 8313. Order Information: FOOT RIGHT 3+ VWS. Accession Number: [id number]. CPT: 99107. Indication: Right foot injury after fall. 3 views of the right foot demonstrates no fracture or dislocation. No other bone or joint. abnormality is identified. IMPRESSION: No fracture of the right foot is noted. . <Electronically signed by Lisa Merino MD in [facility]> 04/17/18 8019. Order Information: WRIST LEFT 3+ VWS. Accession Number: [id number]. CPT: 73524. Indication: Left wrist injury. 3 views of the wrist demonstrates no fracture. No other bone or joint abnormality is. identified. IMPRESSION: NO FRACTURE OF THE WRIST IS NOTED. . <Electronically signed by Lisa Merino MD in [facility]> 04/17/18 371. Order Information: ELBOW LEFT 3+VWS. Accession Number: [id number]. CPT: 56882. Indication: Left elbow injury. 4 views of the left elbow are reviewed. There is no fracture or dislocation. There is no. other bone or joint abnormality noted. No joint effusion is noted. IMPRESSION: No fracture of the left elbow is noted. . <Electronically signed by Lisa Merino MD in [facility]> 04/17/18 630. I discussed the x-ray results with the patient and her . No fracture seen on x-ray. Patient is tender to palpation in the left snuffbox therefore we will use a thumb spica splint. Thumb spica splint was placed by nursing and neurovascularly intact after placement of the splint. Patient has a lot of pain with ambulation a left knee. We'll place an Logan wrap and a knee immobilizer. These replacement nursing and she was neurovascularly intact after placement. Patient's been able to walk using her right foot. Plan is follow up with primary care doctor. I let them know about the potential risk for navicular injury and the need for re-x-raying if not completely improved. - Differential Dx/Diagnosis Provider Diagnoses: LEFT HAND AND WRIST SPRAIN. LEFT KNEE SPRAIN. RIGHT FOOT CONTUSION Discharge - Sign-Out/Discharge Documenting (check all that apply): Patient Departure All imaging exams completed and their final reports reviewed: Yes - Discharge Plan Condition: Stable Disposition: HOME Patient Education Materials: Wrist Sprain (ED), Hand Sprain (ED), Knee Sprain ( ED), Foot Contusion (ED) Referrals: Vikas Matias DO [Primary Care Provider] - Additional Instructions: FOLLOW UP WITH YOUR DOCTOR. IF YOUR WRIST PAIN DOES NOT GO AWAY COMPLETELY, GET RECHECKED; YOU MAY NEED A REPEAT X-RAY. GET RECHECKED FOR ANY WORSENING OF YOUR CONDITION OR QUESTIONS OR CONCERNS. - Billing Disposition and Condition Condition: STABLE Disposition: Home
[2018-04-17 19:02] VITALS: BP 168/78
== END 2018-04-17 19:03 | disposition home or self-care (01) ==
LOC: UCEAST 16:12
DX: S63.92XA Sprain of unspecified part of left wrist and hand, initial encounter (principal); S83.92XA Sprain of unspecified site of left knee, initial encounter; S90.31XA Contusion of right foot, initial encounter; W01.0XXA Fall on same level from slipping, tripping and stumbling without subsequent striking against object, initial encounter; Y92.9 Unspecified place or not applicable; Z88.5 Allergy status to narcotic agent; Z88.8 Allergy status to other drugs, medicaments and biological substances; Z91.048 Other nonmedicinal substance allergy status; Z87.891 Personal history of nicotine dependence
CPT/HCPCS: 99213; A9270-GY; G0463

== ENCOUNTER 2018-04-24 02:02 | Observation (INO) | payer MEDICARE ==
[2018-04-24] MEDS ORDERED: NS 0.9% 1000 ML* 1,000 ML IV ONE (02:48)
[2018-04-24] MEDS ORDERED: Ondansetron INJ* 2 MG/ML VIAL IV ONE (02:48)
[2018-04-24] MEDS ORDERED: Morphine INJ* 4 MG/ML 1 ML SYRINGE (NEW SYRINGE VERSION) IV ONE (02:48)
--- NOTE | 2018-04-24 02:51 | ED ---
Abdominal Pain/Female - HPI Summary HPI Summary: This patient is a 73 year old F presenting to ED with a chief complaint of diffuse abdominal pain since 1700 yesterday evening, about 0.5 hours after she ate. The CC is described as radiating all around to her back. The patient reports that she usually gets blockages but this pain feels different than that. The patient rates the pain 9/10 in severity. Symptoms aggravated by nothing. Symptoms alleviated by nothing. Patient reports N/V/D (last BM was earlier today) and flatulence. Patient denies CP. - History of Current Complaint Chief Complaint: EDAbdPain Stated Complaint: ABD PAIN/ BACK PAIN Time Seen by Provider: 04/24/18 02:31 Hx Obtained From: Patient Hx Last Menstrual Period: NA Onset/Duration: Sudden Onset, Lasting Hours, Still Present Timing: Hours Severity Initially: Severe Severity Currently: Severe Pain Intensity: 9 Pain Scale Used: 0-10 Numeric Location: Diffuse Radiates: Yes Radiates to: Back Aggravating Factor(s): Nothing Alleviating Factor(s): Nothing Associated Signs and Symptoms: Positive: Nausea, Vomiting, Diarrhea, Other: - flatulence. Negative: Chest Pain Allergies/Adverse Reactions: Allergies Allergy/AdvReac Type Severity Reaction Status Date / Time codeine Allergy Hallucinati Verified 04/24/18 02:15 ons duloxetine [From Cymbalta] Allergy See Comment Verified 04/24/18 02:15 surgical tape Allergy Severe rash Uncoded 04/24/18 02:15 severe itching PMH/Surg Hx/FS Hx/Imm Hx Endocrine/Hematology History: Reports: Hx Thyroid Disease - unknown Denies: Hx Diabetes, Hx Unexplained Bleeding Cardiovascular History: Reports: Hx Hypertension Denies: Hx Congestive Heart Failure, Hx Pacemaker/ICD, Other Cardiovascular Problems/Disorders Respiratory History: Reports: Hx Seasonal Allergies Denies: Hx Asthma, Hx Chronic Obstructive Pulmonary Disease (COPD) GI History: Reports: Hx Diverticulosis, Hx Gall Bladder Disease - 05/15 convenient care said "slush in [place]" sent her to [facility], Hx Gastroesophageal Reflux Disease - ON MEDICATION FOR, Hx Gastrointestinal Bleed, Hx Hiatal Hernia - possibly, pt unsure, Hx Obstructive Bowel, Other GI Disorders - DIVERTICULITIS Denies: Hx Cirrhosis, Hx Crohn's Disease, Hx Irritable Bowel, Hx Jaundice, Hx Ileostomy, Hx Pyloric Stenosis, Hx Ulcer History: Reports: Other Problems/Disorders - blood in urine Denies: Hx Renal Disease Musculoskeletal History: Reports: Hx Arthritis, Hx Osteoporosis, Other Musculoskeletal History - occassional joint pain Sensory History: Reports: Hx Cataracts - BILATERAL, Hx Contacts or Glasses, Hx Glaucoma - BILATERAL Denies: Hx Hearing Aid Opthamlomology History: Reports: Hx Cataracts - BILATERAL, Hx Contacts or Glasses, Hx Glaucoma - BILATERAL Neurological History: Reports: Hx Headaches, Hx Migraine, Other Neuro Impairments/Disorders - pt reports sciatic pain at times Psychiatric History: Reports: Hx Anxiety, Hx Depression, Hx Post Traumatic Stress Disorder, Hx Inpatient Treatment - [facility], many yrs ago Denies: Hx Panic Disorder, Hx Schizophrenia, Hx Suicide Attempt, Hx Substance Abuse, Other Psychiatric Issues/Disorders - Surgical History Surgery Procedure, Year, and Place: HYSTERECTOMY, APPENDECTOMY,bowel resection, t&a Hx Anesthesia Reactions: Yes - VERY COLD Infectious Disease History: No Infectious Disease History: Denies: Hx Hepatitis, Hx Human Immunodeficiency Virus (HIV), Traveled Outside the [place] in Last 30 Days - Family History Known Family History: Positive: Hypertension - Social History Alcohol Use: Rare Substance Use Type: Reports: None Smoking Status (MU): Former Smoker Amount Used/How Often: 1 PPD X OFF AND ON 20 YEARS Have You Smoked in the Last Year: No Review of Systems Negative: Chest Pain Positive: Abdominal Pain, Vomiting, Diarrhea, Nausea, Other - flatulence All Other Systems Reviewed And Are Negative: Yes Physical Exam - Summary Physical Exam Summary: GENERAL: Patient is a well-developed and nourished F who is lying comfortable in the stretcher. Patient is not in any acute respiratory distress. HEAD AND FACE: Normocephalic EYES: PERRLA, EOMI x 2. EARS: Hearing grossly intact. MOUTH: Oropharynx within normal limits. NECK: Supple, trachea is midline, no adenopathy, no JVD, no carotid bruit. CHEST: Symmetric, no tenderness at palpation LUNGS: Clear to auscultation bilaterally. No wheezing or crackles. CVS: Regular rate and rhythm, S1 and S2 present, no murmurs or gallops appreciated. ABDOMEN: Soft, Diffuse tenderness to palpation. Bowel sounds are normal. No abdominal abnormal pulsations. EXTREMITIES: Full ROM in all major joints, no edema, no cyanosis or clubbing. NEURO: Alert and oriented x 3. No acute neurological deficits. Speech is normal and follows commands. SKIN: Dry and warm Triage Information Reviewed: Yes Vital Signs On Initial Exam: Initial Vitals Temp Pulse Resp BP Pulse Ox 98 F 93 18 174/105 97 04/24/18 02:11 04/24/18 02:11 04/24/18 02:11 04/24/18 02:11 04/24/18 02:11 Vital Signs Reviewed: Yes Diagnostics - Vital Signs Vital Signs Temp Pulse Resp BP Pulse Ox 04/24/18 02:11 98 F 93 18 174/105 97 - Laboratory Result Diagrams: 04/24/18 03:16 04/24/18 03:16 Lab Statement: Any lab studies that have been ordered have been reviewed, and results considered in the medical decision making process. - CT Abd/Pel CT CT Interpretation Completed By: Radiologist - Small bowel obstruction with transition point in the left anterior midabdomen. Dr. Ceballos has reviewed this radiology report. - EKG 0350 Cardiac Rate: NL - 63 BPM EKG Rhythm: Sinus Rhythm EKG Interpretation: RBBB EKG Comparison: No Significant Change - from 10/22/2017 Abdominal Pain Fem Course/Dx - Course Course Of Treatment: This patient is a 73 year old F presenting to ED with a chief complaint of diffuse abdominal pain since 1700 yesterday evening, about 0.5 hours after she ate. In the ED course, the patient was given fluids, morphine, and Zofran. CT abd/pel reveals small bowel obstruction with transition point in the left anterior midabdomen. Consulted Dr. Alfaro who will see the patient in the ED. Discussed with the patient that an NG tube was recommended to be placed and the patient denies it. This patient will be signed out to Dr. Finn, awaiting evaluation by Dr. Alfaro. - Diagnoses Differential Diagnosis: Positive: Other - small bowel obstruction Provider Diagnoses: Small bowel obstruction - Provider Notifications Discussed Care Of Patient With: Vince Alfaro Time Discussed With Above Provider: 06:00 Instructed by Provider To: Will See In ED - Dr. Alfaro will see the patient in the ED. Discharge - Sign-Out/Discharge Documenting (check all that apply): Sign-Out Patient Signing out patient TO: Nadya Finn - Discharge Plan Referrals: Vikas Matias DO [Primary Care Provider] - - Attestation Statements Document Initiated by Scribe: Yes Documenting Scribe: Serafin Coles Provider For Whom Scribe is Documenting (Include Credential): Noman Ceballos MD Scribe Attestation: Serafin Gates, scribed for Noman Ceballos MD on 04/24/18 at 0654.
[2018-04-24 03:28] LABS: ABS Basophils 0.1 10^3/ul (0-0.2); ABS Eosinophils 0 10^3/ul (0-0.6); ABS Lymphocytes 1.2 10^3/ul (1.0-4.8); ABS Monocytes 0.4 10^3/ul (0-0.8); ABS Neutrophils 7.1 10^3/ul (1.5-7.7); ABS Nucleated RBC 0 10^3/ul; Eosinophil % 0.4 % (0-6); Hematocrit 34 % (35-47); Hemoglobin 11.7 g/dl (12.0-16.0); Lymphocyte % 13.9 % (25-47); Mean Corpuscular HGB Conc 34 g/dl (31-36); Mean Corpuscular Hemoglobin 29 pg (27-31); Mean Corpuscular Volume 84 fL (80-97); Mean Platelet Volume 8.7 um3 (7.4-10.4); Nucleated Red Blood Cells % 0; Platelet Count 236 10^3/ul (150-450); Red Blood Count 4.07 10^6/ul (4.00-5.40); Red Cell Distribution Width 15 % (10.5-15); White Blood Count 8.9 10^3/ul (3.5-10.8)
[2018-04-24 03:35] LABS: INR 0.99 (0.77-1.02)
[2018-04-24 03:48] LABS: EGFR Non-African American 98.3 (>60)
[2018-04-24] MEDS ORDERED: Iohexol 300* (CONTRAST) 10 ML SDV IV ONE (04:25)
[2018-04-24 05:08] LABS: Urine Appearance Clear; Urine Blood 2+ (Negative); Urine Color Yellow; Urine Ketones Negative (Negative); Urine Protein Negative (Negative); Urine Red Blood Cell 3+(>10/hpf) (Absent); Urine Urobilinogen Negative (Negative); Urine White Blood Cell Trace(0-5/hpf) (Absent)
--- NOTE | 2018-04-24 05:47 | RAD ---
EXAM: CT Abdomen and Pelvis With Intravenous Contrast EXAM DATE/TIME: 04/24/2018 4:59 AM CLINICAL HISTORY: 73 years old, female; Pain; Abdominal pain; Generalized; Prior surgery; Surgery date: 6+ months TECHNIQUE: Axial computed tomography images of the abdomen and pelvis with intravenous contrast. All CT scans at this facility use at least one of these dose optimization techniques: automated exposure control; mA and/or kV adjustment per patient size (includes targeted exams where dose is matched to clinical indication); or iterative reconstruction. Coronal and sagittal reformatted images were created and reviewed. CONTRAST: 91 ml of OMNI 300 administered intravenously. COMPARISON: A/P WO CT ABD/PEL W/O 10/22/2017 5:41 PM FINDINGS: Lower thorax: Bibasilar dependent atelectasis. ABDOMEN: Liver: Normal. No mass. Gallbladder and bile ducts: Normal. No calcified stones. No ductal dilation. Pancreas: Normal. No ductal dilation. Spleen: Normal. No splenomegaly. Adrenals: Normal. No mass. Kidneys and ureters: Parapelvic 2 cm stable left renal cyst. Stomach and bowel: Small bowel obstruction with transition point in the left anterior midabdomen. Diverticulosis of the colon. No evidence of acute diverticulitis. Appendix: No evidence of appendicitis. PELVIS: Bladder: Unremarkable as visualized. Reproductive: Status post hysterectomy and bilateral salpingo-oophorectomy. ABDOMEN and PELVIS: Intraperitoneal space: Normal. No free air. No significant fluid collection. Bones/joints: No acute fracture. No dislocation. Soft tissues: Unremarkable. Vasculature: Atherosclerotic disease of the abdominal aorta. Lymph nodes: Normal. No enlarged lymph nodes. IMPRESSION: Small bowel obstruction with transition point in the left anterior midabdomen. To contact [facility] with a general question: Operations Center - [phone] For direct physician to physician contact: Physician Hotline - [phone] [facility] ([facility] Facility ID #[id number])
[2018-04-24] MEDS ORDERED: Morphine VIAL* 10 MG/ML 1 ML VIAL IV ONE (06:01)
[2018-04-24] MEDS ORDERED: Metoclopramide IV* 5 MG/ML 2 ML VIAL IV ONE (06:01)
[2018-04-24] MEDS ORDERED: Morphine INJ* 4 MG/ML 1 ML SYRINGE (NEW SYRINGE VERSION) ONE (06:06)
--- NOTE | 2018-04-24 07:23 | ED ---
Progress - Progress Note Progress Note: Patient was received as a sign out from Dr. Ceballos to Dr. Finn at [address] Alfaro evaluation of patient. 08 Dr. Alfaro has not arrived to ED to evaluate patient. As Dr. Rawls is paperhanger contractor, he will be contacted to discuss plan for patient. One of the OR nurses was reached as Dr. Rawls is currently in the OR. Nurse states that she will discuss the situation with Dr. Rawls. 08 Dr. Alfaro just arrived in the room. He accepts patient for admission. Dx of SBO. Course/Dx - Course Course Of Treatment: Patient was received as a sign out from Dr. Ceballos to Dr. Finn at 0700 04/24[address] Alfaro evaluation of patient. 08 Dr. Alfaro has not arrived to ED to evaluate patient. As Dr. Rwals is paperhanger contractor, he will be contacted to discuss plan for patient. One of the OR nurses was reached as Dr. Rawls is currently in the OR. Nurse states that she will discuss the situation with Dr. Rawls. 08 Dr. Alfaro just arrived in the room. He accepts patient for admission. Dx of SBO. - Diagnoses Provider Diagnoses: Small bowel obstruction - Provider Notifications Discussed Care Of Patient With: iVnce Alfaro Time Discussed With Above Provider: 08:26 Instructed by Provider To: Other - 0826 - Dr. Alfaro accepts patient for admission Discharge - Sign-Out/Discharge Documenting (check all that apply): Patient Departure - admit - Discharge Plan Condition: Good Disposition: ADMITTED TO [facility] - Billing Disposition and Condition Condition: GOOD Disposition: Admitted to [facility] - Attestation Statements Document Initiated by Scribe: Yes Documenting Scribe: Lenny Becerra Provider For Whom Blu is Documenting (Include Credential): Nadya Finn MD Scribe Attestation: Lenny Gates scribed for Nadya Finn MD on 04/24/18 at 1153. Scribe Documentation Reviewed: Yes Provider Attestation: The documentation as recorded by the Lenny samuels accurately reflects the service I personally performed and the decisions made by ky, Nadya Finn MD
[2018-04-24] MEDS ORDERED: Ondansetron INJ* 2 MG/ML VIAL IV PRN (08:45)
[2018-04-24] MEDS ORDERED: HYDROmorphone INJ1* 1 MG/ML SYRINGE IV PRN (08:45)
[2018-04-24] MEDS ORDERED: Magnesium Sulfate 2 GM IV* 2 GM/50 ML BAG IVPB ONE (08:51)
[2018-04-24] MEDS: Pantoprazole IV* 40 MG IV SCH (09:23)
[2018-04-24] MEDS: KCL 20 MEQ/100 ML IVPREMIX* 20 MEQ/100 ML BAG IV SCH ×2 (10:19→15:12)
--- NOTE | 2018-04-24 11:08 | HP ---
CC: Vikas Matias DO, [facility]. * HISTORY AND PHYSICAL: DATE OF ADMISSION: 04/24/18 CHIEF COMPLAINT: Small bowel obstruction. HISTORY OF PRESENT ILLNESS: Angela Villa is a 73-year-old female with history of hypertension, GERD, hypothyroidism, osteoporosis, and recurrent small bowel obstructions, who presented to [facility] Emergency Room with complaints of abdominal pain, right side greater than left associated with back pain. This began at 5 p.m. on 04/23/18. The patient had small bowel movements and flatus the morning prior, but has inability to pass flatus and increasing pain with abdominal distention, nausea and vomiting. She recognized her symptoms as being consistent with small bowel obstruction and she presented to [facility] Emergency Room. The patient rated her pain as 9/10 in severity. In the emergency room, she was evaluated and noted to have normal WBCs. The CT scan of abdomen and pelvis was performed, which demonstrated small bowel obstruction with a transition point in the left anterior mid abdomen. She refused NG tube placement. Surgical consultation was requested. At present, the patient reports she has had some improvement in her pain with morphine and she has also received Zofran and Reglan. She notes the pain is different from her previous episodes as this seems to radiate to her back more. PAST MEDICAL HISTORY: Hypertension, hypothyroidism, osteoporosis, GERD. PAST SURGICAL HISTORY: section x2, one of these complicated by small bowel enterotomies necessitating exploratory laparotomy and small bowel resection. She also had hysterectomy complicated by enterotomies. She has also had tonsillectomy and tubal ligations in the past. She has had at least half a dozen admissions to the hospital for small-bowel obstruction that have each resolved without surgery. MEDICATIONS: 1. Omeprazole 20 mg p.o. q. a.m. 2. Losartan 100 mg p.o. q. a.m. 3. Levothyroxine 50 mcg p.o. q. a.m. ALLERGIES: CODEINE causes hallucinations. ADHESIVE TAPE causes rash. CYMBALTA has caused jerking reactions. SOCIAL HISTORY: She is , lives with her . She has 6 children. She is an ex-smoker, who quit more than 30 years ago. She drinks less than 1 alcoholic beverage per week. She denies drug use. FAMILY HISTORY: She reports mother had heart disease and father had lung cancer. Mother also had diabetes. She has a sister, does not know her history. She reports her 6 children are well. REVIEW OF SYSTEMS: Cardiac: Denies any chest pain, shortness of breath or dyspnea on exertion. She can walk a flight of stairs without stopping. Respiratory: No shortness of breath, no wheezing, no cough. GI: Denies blood per rectum. History as above. She has not had any colonoscopies having been told in the past these were too dangerous. : Reports history of benign hematuria and recent urinary tract infection 2 weeks ago. She was treated with antibiotics. Currently no dysuria. Endocrine: Denies diabetes. Hypothyroidism as above. Hematologic: No history of easy bruising, easy bleeding or blood clots. Musculoskeletal: Osteoporosis as above. Osteoarthritis. No muscular pains. Constitutional: No fevers, chills or weight loss. PHYSICAL EXAMINATION GENERAL: He is a thin, well-developed, well-nourished male, in no acute distress. VITAL SIGNS: Temperature is 97.9, blood pressure 172/86, pulse 75, respirations 20, O2 sat 98% on room air. HEENT: Head is normocephalic and atraumatic. Sclerae are anicteric. Mucous membranes are moist. No otorrhea. No rhinorrhea. NECK: Is symmetrical. Trachea midline. No palpable lymphadenopathy or masses. PULMONARY: Lungs are clear to auscultation bilaterally, without wheezes, rales, or rhonchi. CARDIAC: Heart is regular, S1 and S2. No murmurs, rubs, or gallops appreciated. ABDOMEN: Abdomen has notable distention and large midline scar as well as scar in Pfannenstiel position. Bowel sounds are present. Abdomen is tympanitic, soft, tender, diffusely throughout to moderate palpation. No tenderness to percussion. EXTREMITIES: Warm, without cyanosis, clubbing, or edema. There is no calf tenderness. DIAGNOSTIC STUDIES/LAB DATA: WBC is 8.9, hemoglobin 11.7, hematocrit 34, platelets 236, differential no shift. Chemistries: Sodium 143, potassium 3.3, chloride 111, bicarb 25, BUN 15, creatinine 0.6. Glucose 141, lactate 0.8, magnesium level 1.7; transaminates, total bilirubin not elevated. Lipase low. CRP is normal. Albumin 3.9. Coagulation normal. Urinalysis 2+ blood. CT scan of abdomen and pelvis notable for proximal dilated loops small bowel, this was decompressed with small bowel, stool throughout the colon. Evidence of prior bowel resection with staple line is noted in the right lower quadrant and lower mid abdomen. Transition point in the left anterior abdomen. IMPRESSION: A 73-year-old female with recurrent small bowel obstructions presenting with small bowel obstruction likely secondary to adhesions. She has no signs and does not require any urgent or emergent surgical intervention. PLAN/RECOMMENDATION: The patient will be admitted to observation. She will be kept n.p.o. She is refusing NG tube. States she would accept one if she is persistently vomiting. We will hold her oral medications for now and follow up with serial exams and abdominal x-rays. [id number]/CPS #: [id number] MTDD
[2018-04-24] MEDS ORDERED: Metoclopramide IV* 5 MG/ML 2 ML VIAL ONE (17:21)
[2018-04-24] MEDS ORDERED: Metoclopramide IV* 5 MG/ML 2 ML VIAL IV PRN (18:07)
[2018-04-25] MEDS ORDERED: Ketorolac INJ* 15 MG/ML 1 ML VIAL IV PUSH ONE (03:38)
[2018-04-25 06:20] LABS: ABS Basophils 0 10^3/ul (0-0.2); ABS Eosinophils 0 10^3/ul (0-0.6); ABS Lymphocytes 2.1 10^3/ul (1.0-4.8); ABS Monocytes 0.6 10^3/ul (0-0.8); ABS Neutrophils 6.1 10^3/ul (1.5-7.7); ABS Nucleated RBC 0 10^3/ul; Eosinophil % 0.2 % (0-6); Hematocrit 32 % (35-47); Hemoglobin 11.2 g/dl (12.0-16.0); Mean Corpuscular HGB Conc 35 g/dl (31-36); Mean Corpuscular Hemoglobin 30 pg (27-31); Mean Corpuscular Volume 84 fL (80-97); Nucleated Red Blood Cells % 0.1; Platelet Count 231 10^3/ul (150-450); Red Cell Distribution Width 15 % (10.5-15); White Blood Count 8.8 10^3/ul (3.5-10.8)
[2018-04-25 06:41] LABS: EGFR Non-African American 115.9 (>60)
--- NOTE | 2018-04-25 09:15 | RAD ---
Indication: Small bowel obstruction Flat and upright views of the abdomen demonstrates no free air. There is contrast throughout the colon. No dilated loops of bowel are noted. Bowel gas pattern is unremarkable. IMPRESSION: No free air or obstruction is noted.
[2018-04-25] MEDS: Pantoprazole IV* 40 MG IV SCH (09:16)
--- NOTE | 2018-04-25 09:40 | PN ---
Progress Note - Progress Note Date of Service: 04/25/18 Note: S: Feeling much better. Passing flatus. Has a headache (for which she usually takes amitriptylline.) No N/V. Feels like eating. O: Vital Signs - 8 hr 04/25/18 04/25/18 04/25/18 03:29 07:20 07:34 Temperature 98.2 F 98.0 F Pulse Rate 88 82 Respiratory 18 20 16 Rate Blood Pressure 165/79 149/80 (mmHg) O2 Sat by Pulse 97 98 Oximetry Intake and Output Last 24 Hours 04/23/18 04/24/18 04/25/18 04/26/18 06:59 06:59 06:59 06:59 Intake Total 2198 885 Output Total 2300 450 Balance -102 435 Weight 151 lb 151 lb Intake: IV Fluids 1981 885 LR 1981 885 IVPB 216 Magnesium 42 Potassium 174 Oral 0 0 Output: Urine 2300 450 Heart: reg Lungs; clear ant Abd: nondistended; +BS; soft; nontender to palp AXR: ADM Status: ADM Carlos Order Information: ABDOMEN (COMPLETE) 2 [facility] Accession Number: [id number] CPT: 29367 Indication: Small bowel obstruction Flat and upright views of the abdomen demonstrates no free air. There is contrast throughout the colon. No dilated loops of bowel are noted. Bowel gas pattern is unremarkable. IMPRESSION: No free air or obstruction is noted. A: SBO, resolved P: clear liqs; d/c home later today if chelo; can advance diet at home
[2018-04-25] MEDS ORDERED: Amitriptyline TAB* 10 MG PO ONE (09:46)
[2018-04-25] MEDS ORDERED: Omeprazole CAP* 20 MG PO SCH (12:00)
[2018-04-25] MEDS ORDERED: Levothyroxine TAB* 50 MCG TAB PO SCH (12:00)
[2018-04-25] MEDS ORDERED: Losartan TAB* 25 MG PO SCH (12:00)
[2018-04-25 16:38] VITALS: BP 170/83
--- NOTE | 2018-04-26 06:52 | DS ---
AMENDED REPORT NOW INCLUDES DESIGNATED COSIGNER CC: Dr. Alfaro; Dr. Maitas, [facility] * DISCHARGE SUMMARY: DATE OF ADMISSION: 04/24/18 DATE OF DISCHARGE: 04/25/18 ATTENDING SURGEON: Dr. Vince Alfaro.* (DICTATED BY ENDY NICOLE NP) HOSPITAL COURSE: Please see admission history and physical for admission details. Essentially, the patient is a 73-year-old female with a history of recurrent small bowel obstruction, likely secondary to adhesions. She came to the emergency room, 04/24/18, complaining of right-sided abdominal pain that started at 5 p.m., 04/23/18, associated with nausea, vomiting, and increasing abdominal distention. CAT scan of the abdomen and pelvis revealed a small bowel obstruction with a transition point in the left anterior mid abdomen. The patient refused a nasogastric tube. She was assessed by Dr. Alfaro and he indicated that she did not need urgent or emergent surgical intervention. She was admitted for observation, she was kept n.p.o. and given IV fluid resuscitation. Today, she is feeling much better. She denies any nausea or vomiting or abdominal pain; she is passing flatus and tolerating clear liquids. Abdominal x-ray today revealed no free air or obstruction. PHYSICAL EXAMINATION: General: Well appearing, in no acute distress. Vital signs are stable. She is afebrile. O2 saturation on room air is 98%. Abdomen : Nondistended; active bowel sounds, soft and nontender to palpation. IMPRESSION: Resolved small bowel obstruction. PLAN: Discharge home today; instructions were reviewed with the patient to slowly advance her diet at home. She will follow up with her primary care provider, Dr. Matias, at [place]. ENDY NICOLE NP [id number]/[facility] #: [id number] [facility] H[facility]PITALOrtega
== END 2018-04-25 16:20 | disposition home or self-care (01) ==
LOC: ED 02:02 → SSU 08:45
PROVIDERS: ADMIT Surgery; ATTEND Surgery
DX: K56.609 Unspecified intestinal obstruction, unspecified as to partial versus complete obstruction (principal); R11.2 Nausea with vomiting, unspecified; R19.7 Diarrhea, unspecified; Z87.891 Personal history of nicotine dependence; I10 Essential (primary) hypertension
CPT/HCPCS: 36415; 74019; 74177; 80048; 80053; 81003; 81015; 83605; 83690; 83735; 84484; 85025; 85610; 85730; 86140; 87040; 87086; 93005; 96374; 96375; 96376; 99283; A9270-GY; G0378; J1170; J1885; J2270; J2405; J2765; J3475; J3480; Q9967

== ENCOUNTER 2019-03-26 23:29 | Inpatient (IN) | payer MEDICARE ==
--- OUTSIDE RECORDS SUMMARY | 2019-03-26 23:40 | XMS REPORT | Continuity of Care Document ---
:1945 External Reference #:[id number] Author Name Khadar Cartwright M.D. (transmitted by agent of provider Sherice Mcfadden ) Address [address], [place] [address] Care Team Providers Name Role Phone Aria Edward MD - Internal Medicine Care Team Information Instrument Mechanic Vikas Matias D.O. - Family Medicine Care Team Information Instrument Mechanic Problems Active Problems Provider Date Chest pain Osito Ariza M.D., [facility], [facility] Onset: 08/13/2013 Palpitations Osito Ariza M.D., [facility], [facility] Onset: 04/07/2016 Social History Type Date Description Comments Sex Unknown ETOH Use Rarely consumes alcohol Tobacco Use Start: Unknown End: Patient is a former smoker quit 1981 Unknown Recreational Drug Use Denies Drug Use Smoking Status Reviewed: 03/14/19 Patient is a former smoker quit 1981 Exercise Type/Frequency Does not exercise Allergies, Adverse Reactions, Alerts Active Allergies Reaction Severity Comments Date Cymbalta burning throughout her body & head & 08/13/2013 limb jerking/twitching Codeine hallucinations 08/13/2013 Gabapentin Headache 10/02/2013 Medications Active Medications SIG Qnty Indications Ordering Date Provider Lorazepam 1 tab po daily 30tabs Unknown 0.5mg Tablets prn Omeprazole 1 cap po daily Aria Edward MD 20mg Benadryl Allergy 2 tablet po prn Unknown Aleve 2 by mouth twice Unknown 220mg Capsules a day as needed Chlorthalidone take 1/2 tablet Unknown 25mg Tablets by mouth once daily Levothyroxine Sodium 1 tab by mouth Unknown 50mcg once daily Tablets Losartan Potassium 1 by mouth every Unknown 100mg day Tablets Cephalexin take 1 capsule Unknown 500mg Capsules by mouth once daily as directed Mometasone Furoate instill 2 sprays Unknown into each 50mcg/Act Suspension nostril once daily prn Medications Administered in Office Medication SIG Qnty Indications Ordering Provider Date Injection Onabotulinumtoxin AKhadar M.D. 09/05/2018 1 Unit Injection Injection Onabotulinumtoxin Khadar Garcia M.D. 05/30/2018 1 Unit Injection Injection Onabotulinumtoxin Khadar Garcia M.D. 02/13/2018 1 Unit Injection Injection Onabotulinumtoxin Khadar aGrcia M.D. 11/08/2017 1 Unit Injection Technetium TC 99M Tetrofosmin, Osito Ariza, 05/03/2016 Per Unit Dose Up To 40 M.D., [facility], [facility] Injection Immunizations Description No Information Available Vital Signs Date Vital Result Comment 03/14/2019 1:20pm Height 61 inches 5'1" Weight 150.00 lb Heart Rate 78 /min BP Systolic 124 mmHg BP Diastolic 82 mmHg BMI (Body Mass Index) 28.3 kg/m2 09/05/2018 10:12am Height 61 inches 5'1" Weight 149.00 lb Heart Rate 74 /min BP Systolic Sitting 110 mmHg BP Diastolic Sitting 78 mmHg Respiratory Rate 16 /min BMI (Body Mass Index) 28.2 kg/m2 Results Description No Information Available Procedures Date Code Description Status 03/14/2019 38049 Destruction W/Neurolytic Agent, Facial Nerve Muscle, Completed Unilateral 06/24/2016 [id number] Bone Mineral Density Test Completed Medical Devices Description No Information Available Encounters Description No Information Available Assessments Date Code Description Provider 03/14/2019 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 Plan of Treatment Future Appointment(s):09/25/2019 10:00 am - Khadar [facility]wright M.D. at [facility]06/20/2019 11:45 am - Khad[facility] M[facility] at [facility]/14/2019 - Khadar Cartwright M.D.G24.5 BlepharospasmFollow up:3 months for botox Functional Status Description No Information Available Mental Status Description No Information Available Referrals Description No Information Available
--- OUTSIDE RECORDS SUMMARY | 2019-03-26 23:40 | XMS REPORT | Continuity of Care Document ---
:1945 External Reference #:[id number] Author Name Sylvain Vicente, OD Address [address] [place] [address] Care Team Providers Name Role Phone Rene MatiasDO josé miguel Care Team Information Keysmith [phone] [facility] Care Team Information Keysmith [phone] Problems Active Problems Provider Date Essential hypertension Onset: 08/28/2013 Presbyopia Sylvain Solano O.D. Onset: 08/29/2013 Nuclear senile cataract Sylvain Solano O.D. Onset: 08/29/2013 Vitreous degeneration Sylvain Solano O.D. Onset: 08/29/2013 Tear film insufficiency Sylvain Solano O.D. Onset: 08/29/2013 Social History Type Date Description Comments Sex Unknown ETOH Use Rarely consumes alcohol Tobacco Use Start: Unknown End: Patient is a former smoker quit 30 years ago Unknown Smoking Status Reviewed: 03/21/19 Patient is a former smoker quit 30 years ago Allergies, Adverse Reactions, Alerts Active Allergies Reaction Severity Comments Date Xiidra 05/30/2018 Seasonal 03/22/2019 Inactive Allergies NKDA 08/28/2013 Medications Active Medications SIG Qnty Indications Ordering Date Provider Levothyroxine Sodium take 1 tablet Unknown 25mcg Tablets by mouth once daily Lorazepam take 1 tablet Unknown 0.5mg Tablets by mouth if needed for anxiety maximum daily dose of 2 Losartan Potassium Unknown 100mg Tablets Omeprazole Unknown 20mg Capsules DR Hydrochlorothiazide take 1/2 tablet Unknown 25mg Tablets by mouth once daily for 4 days then 1 tablet once daily as directed Ibuprofen Unknown 600mg Tablets History Medications Tobramycin-Dexamethasone 1 drop tid OD 5ml Sylvain Vicente, 12/28/2018 - 0.3-0.1% Suspension x 1 week, OD 03/22/2019 then d/c Immunizations Description No Information Available Vital Signs Date Vital Result Comment 01/01/2019 11:45am Intraocular Pressure Right Eye 15 mmHg 12/28/2018 3:22pm Intraocular Pressure Right Eye 14 mmHg Results Description No Information Available Procedures Date Code Description Status 12/20/2018 71058 Oct, Optic Nerve Completed 12/20/2018 30824 Eye Exam Est Intermediate Completed Medical Devices Description No Information Available Encounters Type Date Location Provider Dx Diagnosis Office Visit 01/01/2019 Main Office Sylvain Vicente, OD 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, upper and lower eyelids H40.1131 Primary open-angle glaucoma, bilateral, mild stage Office Visit 12/28/2018 3:00p Main Office Sylvain Vicente, H01.02A Squamous OD blepharitis right eye, upper and lower eyelids Assessments Date Code Description Provider 03/22/2019 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, upper and lower Sylvain Vicente, OD eyelids 03/22/2019 H40.1131 Primary open-angle glaucoma, bilateral, mild Sylvain Mcelroyon, OD stage 03/22/2019 Z96.1 Presence of intraocular lens Sylvain Vicente, OD 03/22/2019 H04.123 Dry eye syndrome of bilateral lacrimal glands Sylvain Vicente, OD 01/01/2019 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, upper and lower Sylvain Vicente, OD eyelids 01/01/2019 H40.1131 Primary open-angle glaucoma, bilateral, mild Sylvain Vicente, OD stage 12/28/2018 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, upper and lower Sylvain Vicente, OD eyelids 12/20/2018 Z96.1 Presence of intraocular lens Sylvain Vicente, OD 12/20/2018 H40.1131 Primary open-angle glaucoma, bilateral, mild Sylvain Vicente, OD stage 12/20/2018 H04.123 Dry eye syndrome of bilateral lacrimal glands Sylvain Vicente, OD Plan of Treatment 03/22/2019 - Sylvain Vicente, OD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, upper and lower [id number] Primary open-angle glaucoma, bilateral, mild ozvjbZ15.1 Presence of intraocular lensH04.123 Dry eye syndrome of bilateral lacrimal glandsFollow up:3 weeks IOP, sooner PRN Functional Status Description No Information Available Mental Status Description No Information Available Referrals Description No Information Available
[2019-03-27 00:31] LABS: ABS Basophils 0.1 10^3/ul (0-0.2); ABS Lymphocytes 1.6 10^3/ul (1.0-4.8); ABS Monocytes 0.5 10^3/ul (0-0.8); Eosinophil % 0.2 %; Hematocrit 37 % (35-47); Hemoglobin 12.5 g/dL (12.0-16.0); Mean Corpuscular HGB Conc 34 g/dL (31-36); Mean Corpuscular Hemoglobin 29 pg (27-31); Mean Corpuscular Volume 85 fL (80-97); Mean Platelet Volume 8.5 fL (7.4-10.4); Nucleated Red Blood Cells % 0.1; Platelet Count 296 10^3/uL (150-450); Red Cell Distribution Width 14 % (10-15); White Blood Count 12.2 10^3/uL (3.5-10.8)
[2019-03-27 00:47] LABS: Albumin 4.5 g/dL (3.2-5.2); Albumin/Globulin Ratio 1.5 (1-3); BUN/Creatinine Ratio 24.7 (8-20); C Reactive Protein 11.22 mg/L (<8.01); Calcium 9.7 mg/dL (8.6-10.3); EGFR African American 79.3 (>60); EGFR Non-African American 65.6 (>60); Potassium 3.7 mmol/L (3.5-5.0); Total Bilirubin 0.3 mg/dL (0.2-1.0); Total Protein 7.5 g/dL (6.4-8.9)
[2019-03-27] MEDS ORDERED: NS 0.9% 1000 ML** 2,000 ML IV ONE (03:21)
[2019-03-27] MEDS ORDERED: Ondansetron INJ* 2 MG/ML VIAL IV ONE (03:21)
[2019-03-27] MEDS ORDERED: Morphine 4 MG/ML VIAL (1 ml) 4 MG/ML VIAL IV PRN (03:21)
[2019-03-27] MEDS ORDERED: Morphine 4 MG/ML VIAL (1 ml) 4 MG/ML VIAL IV ONE (03:21)
[2019-03-27] MEDS ORDERED: Iohexol 300* (CONTRAST) 10 ML SDV IV ONE (03:35)
--- NOTE | 2019-03-27 03:54 | ED ---
Abdominal Pain/Female - HPI Summary HPI Summary: The patient is a 74 y/o F presenting to [facility] accompanied by with a chief complaint of RUQ pain beginning last night around 1830 following dinner. She reports that she had eaten dinner, which consisted of soup with a lot of vegetables, including raw carrots, which she doesn't usually due to multiple small intestinal resections since the , causing her to be careful about her intake. Approximately 30 minutes later, she began to experience RUQ pain, nausea, and vomiting (three episodes since onset). The RUQ pain is described as an intermittent burning pain that radiates to the right mid-thoracic back and is rated 10/10 in severity. She states she is feeling better now in the ED with vomiting noted as an alleviated factor as it has reduced the pressure sensation she had been feeling. She has never experienced this pain before. No appendectomy, cholecystectomy. PMHx: HTN, thyroid disease, GERD, diverticulosis , obstructive bowel, IBS, osteoporosis, hysterectomy. Former smoker, rare EtOH, no substance use. Medications reviewed. Allergies noted. - History of Current Complaint Chief Complaint: EDAbdPain Stated Complaint: ABD PAIN PER PT Time Seen by Provider: 03/27/19 03:14 Hx Obtained From: Patient Hx Last Menstrual Period: NA Onset/Duration: Sudden Onset, Lasting Hours, Still Present Timing: Hours Severity Initially: Severe Severity Currently: Moderate Pain Intensity: 10 Pain Scale Used: 0-10 Numeric Location: Discrete At: RUQ Radiates: Yes Radiates to: Back - right mid-thoracic Character: Burning, Other: - pressure Aggravating Factor(s): Food Alleviating Factor(s): Vomiting - relieves pressure sensation Associated Signs and Symptoms: Positive: Back Pain, Nausea, Vomiting - three episodes Allergies/Adverse Reactions: Allergies Allergy/AdvReac Type Severity Reaction Status Date / Time codeine Allergy Hallucinati Verified 03/27/19 03:54 ons duloxetine [From Cymbalta] Allergy See Comment Verified 03/27/19 03:54 surgical tape Allergy Severe rash Uncoded 03/26/19 23:32 severe itching Home Medications: Home Medications Hydrochlorothiazide TAB* [Hydrodiuril TAB*] 25 mg PO DAILY 03/27/19 [History Confirmed 03/27/19] PMH/Surg Hx/FS Hx/Imm Hx Endocrine/Hematology History: Reports: Hx Thyroid Disease - unknown Denies: Hx Diabetes, Hx Unexplained Bleeding Cardiovascular History: Reports: Hx Hypertension Denies: Hx Congestive Heart Failure, Hx Pacemaker/ICD, Other Cardiovascular Problems/Disorders Respiratory History: Reports: Hx Seasonal Allergies Denies: Hx Asthma, Hx Chronic Obstructive Pulmonary Disease (COPD) GI History: Reports: Hx Diverticulosis, Hx Gall Bladder Disease - 05/15 convenient care said "slush in [place]" sent her to [facility], Hx Gastroesophageal Reflux Disease - ON MEDICATION FOR, Hx Gastrointestinal Bleed, Hx Hiatal Hernia - possibly, pt unsure, Hx Obstructive Bowel, Other GI Disorders - DIVERTICULITIS Denies: Hx Cirrhosis, Hx Crohn's Disease, Hx Irritable Bowel, Hx Jaundice, Hx Ileostomy, Hx Pyloric Stenosis, Hx Ulcer History: Reports: Other Problems/Disorders - blood in urine Denies: Hx Renal Disease Musculoskeletal History: Reports: Hx Arthritis, Hx Osteoporosis, Other Musculoskeletal History - occassional joint pain Sensory History: Reports: Hx Cataracts - BILATERAL, Hx Contacts or Glasses, Hx Glaucoma - BILATERAL Denies: Hx Hearing Aid Opthamlomology History: Reports: Hx Cataracts - BILATERAL, Hx Contacts or Glasses, Hx Glaucoma - BILATERAL Neurological History: Reports: Hx Headaches, Hx Migraine, Other Neuro Impairments/Disorders - pt reports sciatic pain at times Psychiatric History: Reports: Hx Anxiety, Hx Depression, Hx Post Traumatic Stress Disorder, Hx Inpatient Treatment - 2 weeks at [facility], many yrs ago Denies: Hx Panic Disorder, Hx Schizophrenia, Hx Suicide Attempt, Hx Substance Abuse, Other Psychiatric Issues/Disorders - Surgical History Surgical History: Yes Surgery Procedure, Year, and Place: HYSTERECTOMY, APPENDECTOMY,bowel resection, t&a Hx Anesthesia Reactions: Yes - VERY COLD Infectious Disease History: No Infectious Disease History: Denies: Hx Hepatitis, Hx Human Immunodeficiency Virus (HIV), Traveled Outside the [place] in Last 30 Days - Family History Known Family History: Positive: Hypertension - Social History Alcohol Use: Rare Hx Substance Use: No Substance Use Type: Reports: None Hx Tobacco Use: Yes Smoking Status (MU): Former Smoker Amount Used/How Often: 1 PPD X OFF AND ON 20 YEARS Have You Smoked in the Last Year: No Review of Systems Positive: Abdominal Pain - RUQ, Vomiting, Nausea Positive: Other - right mid-thoracic back pain radiating from abd All Other Systems Reviewed And Are Negative: Yes Physical Exam - Summary Physical Exam Summary: Appearance: Well-appearing, Well-nourished, lying in bed comfortably Skin: Warm, dry, no obvious rash Eyes: sclera anicteric, no conjunctival pallor ENT: mucous membranes moist, pharynx appears normal Neck: Supple, nontender Respiratory: Clear to auscultation, no signs of respiratory distress Cardiovascular: Normal S1, S2. No murmurs. Normal distal pulses in tibial and radial bilaterally. Abdomen: Soft, Right-side tenderness, No peritoneal signs, No guarding or rebound, normal active bowel sounds present Musculoskeletal: Normal, Strength/ROM Intact Neurological: A&Ox3, awake and alert, mentation is normal, speech is fluent and appropriate Psychiatric: affect is normal, does not appear anxious or depressed Triage Information Reviewed: Yes Vital Signs On Initial Exam: Initial Vitals Temp Pulse Resp BP Pulse Ox 98.7 F 98 16 162/103 97 03/26/19 23:30 03/26/19 23:30 03/26/19 23:30 03/26/19 23:30 03/26/19 23:30 Vital Signs Reviewed: Yes Diagnostics - Vital Signs Vital Signs Temp Pulse Resp BP Pulse Ox 03/27/19 03:41 16 03/27/19 01:30 97.8 F 96 18 140/85 96 03/26/19 23:30 98.7 F 98 16 162/103 97 - Laboratory Lab Results: Lab Results 03/27/19 03/27/19 03/27/19 Range/Units 00:22 00:22 00:22 WBC 12.2 H (3.5-10.8) 10^3/uL RBC 4.30 (3.70-4.87) 10^6 /uL Hgb 12.5 (12.0-16.0) g/dL Hct 37 (35-47) % MCV 85 (80-97) fL MCH 29 (27-31) pg MCHC 34 (31-36) g/dL RDW 14 (10-15) % Plt Count 296 (150-450) 10^3/uL MPV 8.5 (7.4-10.4) fL Neut % (Auto) 82.2 % Lymph % (Auto) 13.0 % Dickson % (Auto) 4.1 % Eos % (Auto) 0.2 % Baso % (Auto) 0.5 % Absolute Neuts (auto) 10.0 H (1.5-7.7) 10^3/ul Absolute Lymphs (auto) 1.6 (1.0-4.8) 10^3/ul Absolute Monos (auto) 0.5 (0-0.8) 10^3/ul Absolute Eos (auto) 0.0 (0-0.6) 10^3/ul Absolute Basos (auto) 0.1 (0-0.2) 10^3/ul Absolute Nucleated RBC 0.0 10^3/ul Nucleated RBC % 0.1 Sodium 142 (135-145) mmol/L Potassium 3.7 (3.5-5.0) mmol/L Chloride 105 (101-111) mmol/L Carbon Dioxide 27 (22-32) mmol/L Anion Gap 10 (2-11) mmol/L BUN 21 (6-24) mg/dL Creatinine 0.85 (0.51-0.95) mg/dL Est GFR ( Amer) 79.3 (>60) Est GFR (Non-Af Amer) 65.6 (>60) BUN/Creatinine Ratio 24.7 H (8-20) Glucose 146 H (70-100) mg/dL Lactic Acid 1.2 (0.5-2.0) mmol/L Calcium 9.7 (8.6-10.3) mg/dL Total Bilirubin 0.30 (0.2-1.0) mg/dL AST 12 L (13-39) U/L ALT 12 (7-52) U/L Alkaline Phosphatase 64 (34-104) U/L C-Reactive Protein 11.22 H (<8.01) mg/L Total Protein 7.5 (6.4-8.9) g/dL Albumin 4.5 (3.2-5.2) g/dL Globulin 3.0 (2-4) g/dL Albumin/Globulin Ratio 1.5 (1-3) Lipase 19 (11.0-82.0) U/L Result Diagrams: 03/29/19 04:39 03/29/19 04:39 Lab Statement: Any lab studies that have been ordered have been reviewed, and results considered in the medical decision making process. - CT Abd/Pel CT CT Interpretation Completed By: Radiologist Summary of CT Findings: Impression: 1. Dilated loops of small bowel in the left side of the abdomen with a gradual transition from dilated to nondilated small bowel in the lower mid abdomen at the site of a small bowel anastomotic suture line, which are findings that may represent a partial small bowel obstruction or ileus. 2. Colonic diverticulosis without evidence for diverticulitis. ED physician has reviewed this report. Re-Evaluation - Re-Evaluation First Eval Re-Evaluation Time: 06:05 Change: Improved Comment: Pain has improved. We discussed results and plan for admission. Abdominal Pain Fem Course/Dx - Course Course Of Treatment: Pt is a 74 y/o F with cc of sudden onset RUQ pain radiating into the back following eating soup at dinner last night at 1830 accompanied by nausea and vomiting. Upon physical exam, the pt exhibits right- sided abdominal tenderness without peritoneal signs. Blood work reveals WBCs of 12.2, abs neuts of 10.0, BUN/creatinine ratio of 24.7, glucose of 146, AST of 12 , and CRP of 11.22. UA obtained and reveals 3+ blood, 3+ WBCs, 3+ RBCs, and presence of squamous epithelial cells. In the ED course, the pt was administered fluidss, Zofran, and Morphine for pain. Abdominopelvic CT impression reveals dilated loops of small bowel in left abd with possibility of SBO or ileus, and divertiulosis without diverticulitis. Dr. Martinez, hospitalist , accepts pt for admission, Pt and her understand and agree with this plan. Dx is SBO. - Diagnoses Provider Diagnoses: SBO (small bowel obstruction) - Provider Notifications Discussed Care Of Patient With: Shira Martinez - hospitalist Time Discussed With Above Provider: 06:00 Instructed by Provider To: Admit As Inpatient - I discussed the pt's case with Dr. Martinez, who accepts the pt for admission. Discharge ED - Sign-Out/Discharge Documenting (check all that apply): Patient Departure - Patient accepted for admission by Dr. Martinez. Patient Received Moderate/Deep Sedation with Procedure: No - Discharge Plan Condition: Stable Disposition: ADMITTED TO [facility] - Billing Disposition and Condition Condition: STABLE Disposition: Admitted to [facility] - Attestation Statements Document Initiated by Scribe: Yes Documenting Scribe: Gaby Ghotra Provider For Whom Scribe is Documenting (Include Credential): Dr. Rubin Cueto MD Scribe Attestation: I, Gaby Ghotra, scribed for Dr. Rubin Cueto MD on 04/05/19 at 1845. Scribe Documentation Reviewed: Yes Provider Attestation: The documentation as recorded by the raminibe, Gaby Ghotra accurately reflects the service I personally performed and the decisions made by me, Dr. Rubin Cueto MD Status of Scribe Document: Viewed
[2019-03-27 05:02] LABS: Urine Appearance Cloudy; Urine Bacteria Absent (Absent); Urine Bilirubin Negative (Negative); Urine Blood 3+ (Negative); Urine Color Yellow; Urine Glucose Negative (Negative); Urine Ketones Negative (Negative); Urine Nitrite Negative (Negative); Urine Protein Negative (Negative); Urine Red Blood Cell 3+(>10/hpf) (Absent); Urine Squamous Epithelial Cell Present (Absent); Urine Urobilinogen Negative (Negative); Urine White Blood Cell 3+(>20/hpf) (Absent)
[2019-03-27] MEDS ORDERED: Morphine INJ* 2 MG/ML 1 ML SYRINGE (TWO MG - NEW SYRINGE VERSION) IV PRN ×2 (07:38→08:05)
[2019-03-27] MEDS ORDERED: Ondansetron INJ* 2 MG/ML VIAL IV PRN (07:38)
[2019-03-27] MEDS ORDERED: Acetaminophen TAB* 325 MG PO PRN (07:38)
[2019-03-27] MEDS: Levothyroxine TAB* 50 MCG TAB PO SCH (09:33)
[2019-03-27] MEDS: NS 0.9% 1000 ML** 1,000 ML IV SCH ×2 (09:33→20:57)
[2019-03-27] MEDS: Pantoprazole IV* 40 MG IV SCH (09:33)
--- NOTE | 2019-03-27 09:39 | HP ---
CC: Dr. Vikas Matias * HISTORY AND PHYSICAL: DATE OF ADMISSION: 03/27/19 PRIMARY CARE PROVIDER: Dr. Vikas Matias. CHIEF COMPLAINT: Abdominal pain. HISTORY OF PRESENT ILLNESS: Angela Villa is a 74-year-old female with known abdominal adhesions due to which she has frequent small-bowel obstructions and in 2018, she was admitted twice for small-bowel obstruction and treated conservatively, who presented to the hospital with yet another onset of abdominal pain. The patient stated that abdominal cramping occurred suddenly after dinner last night. It begins in the left mid abdomen and radiates to the right mid abdomen. It is intermittent, very severe when it happens, and very crampy. The patient also stated that she has not been able to take anything p.o. ever since then and she "regurgitated" her p.o. contrast for her CT abdomen when it was obtained today. The patient is going to be placed on overnight observation with diagnosis of small-bowel obstruction. PAST MEDICAL HISTORY: 1. Hypothyroidism. 2. Hypertension. 3. Gastroesophageal reflux disease. 4. History of multiple small-bowel obstructions just last year where 2 episodes for which the patient needed to be hospitalized. 5. Osteoporosis. PAST SURGICAL HISTORY: The patient's small-bowel obstructions are thought to be due to peritonitis that occurred post in the 1970s. At that point , she required exploratory laparotomy with bowel resection and bowel perforation repair. In 1985, she had hysterectomy after complications of another . MEDICATIONS AT HOME: Include: 1. Hydrochlorothiazide 25 mg daily. 2. Omeprazole 20 mg daily. 3. Losartan 100 mg daily. 4. Levothyroxine 50 mcg daily. ALLERGIES: Include CODEINE and DULOXETINE as well as SURGICAL TAPE. SOCIAL HISTORY: The patient lives with her , who is her healthcare proxy , Khadar; phone number is [phone]. She denies any tobacco, alcohol or drug use. REVIEW OF SYSTEMS: Please see history of present illness. All the remaining 12 systems were reviewed with the patient and were otherwise negative. PHYSICAL EXAMINATION GENERAL: The patient is a very pleasant 74-year-old female who is in no acute distress. Alert, awake, and oriented x3. VITAL SIGNS: Blood pressure is 112/70, heart rate of 71 and regular, respiratory rate 16, oxygen saturation 93% on room air, temperature 98.2. HEENT: Head: Atraumatic, normocephalic. Eyes: Pupils are equal and reactive to light and accommodation. Oropharynx is clear. Mucosa moist. NECK: Supple. No JVD. No bruits bilaterally. RESPIRATORY: Clear to auscultation bilaterally. CARDIOVASCULAR: Regular rate and rhythm. No murmur. ABDOMEN: Distended, soft, tender in bilateral right and left lower quadrants with no rebound and no guarding. Bowel sounds are present in all 4 quadrants. EXTREMITIES: There is no edema. Pulses are +2 bilaterally. No clubbing or cyanosis. NEUROLOGIC EVALUATION: Speech is clear. Cranial nerves II through XII are grossly intact. Motor strength is 5/5 bilaterally. PSYCHIATRIC: Pleasant and cooperative with evaluation. Oriented x3 with no evidence of anxiety or depression. DIAGNOSTIC STUDIES/LAB DATA: Laboratory data showed white blood cell count of 12.2, hemoglobin of 12.5, hematocrit of 37, platelets 296. Sodium 142, potassium 3.7, chloride 105, carbon dioxide 27, BUN 21, creatinine 0.89. Liver function tests were unremarkable. Lactic acid of 1.2. C-reactive protein of 11.2, lipase of 19. The patient's urinalysis was grossly positive for likely UTI with wbc's of +3, rbc's +3, +3 esterase, and +[address] of abdomen and pelvis obtained today, impression: "Dilated loops of small- bowel on the left side of the abdomen with a gradual transition of the dilated from nondilated small-bowel in the lower mid abdomen at the site of small-bowel anastomotic suture line, which are findings that may represent a partial small- bowel obstruction or ileus. Colonic diverticulosis without evidence of diverticulitis." ASSESSMENT AND PLAN: 1. Small-bowel obstruction, likely due to adhesion. At this point, the patient has history of being able to be treated conservatively twice at the end of 2018. At this point, I will not involve the surgical service, but treat the patient conservatively with sips of clear liquid only diet, IV fluids, and Protonix intravenously for GI prophylaxis. Please provide morphine for pain. 2. In regards to the patient's hypothyroidism, Synthroid is going to be administered p.o. 3. In regards to the patient's abnormal urinalysis, the patient is symptomatic of urinary tract infection. It is likely due to asymptomatic bacteriuria. Nevertheless, we are going to follow the patient's symptoms on a daily basis as well as urine cultures. 4. In regards to the patient's hypertension, the patient is currently normotensive. Her blood pressure medications are going to be held. The patient is going to be monitored. 5. The patient's code status is full. Her surrogate is her . 6. For DVT prophylaxis, the patient is going to be placed on heparin subcutaneously. TIME SPENT: Approximately 62 minutes were spent on the admission of this patient, more than half that time was spent [id number] with the patient during the interview and physical exam. [id number]/CPS #: [id number] TATI
[2019-03-27] MEDS: Heparin VIAL(*) 5000 UNITS/ML VIAL (FIVE THOUSAND) SUBCUT SCH ×2 (14:07→21:50)
[2019-03-27] MEDS: Butalb/Acetamin/Caff TAB* 1 TAB PO PRN (21:02)
[2019-03-28] MEDS: Heparin VIAL(*) 5000 UNITS/ML VIAL (FIVE THOUSAND) SUBCUT SCH ×3 (05:52→22:05)
[2019-03-28 06:49] LABS: ABS Eosinophils 0.1 10^3/ul (0-0.6); ABS Monocytes 0.4 10^3/ul (0-0.8); ABS Neutrophils 3.7 10^3/ul (1.5-7.7); Eosinophil % 0.9 %; Hematocrit 31 % (35-47); Hemoglobin 10.7 g/dL (12.0-16.0); Lymphocyte % 41.7 %; Mean Corpuscular HGB Conc 35 g/dL (31-36); Mean Corpuscular Hemoglobin 30 pg (27-31); Mean Corpuscular Volume 85 fL (80-97); Mean Platelet Volume 9.2 fL (7.4-10.4); Nucleated Red Blood Cells % 0.1; Platelet Count 227 10^3/uL (150-450); Red Blood Count 3.63 10^6 /uL (3.70-4.87); Red Cell Distribution Width 14 % (10-15); White Blood Count 7.1 10^3/uL (3.5-10.8)
[2019-03-28 07:10] LABS: BUN/Creatinine Ratio 15.7 (8-20); Calcium 7.9 mg/dL (8.6-10.3); EGFR Non-African American 118.2 (>60); Potassium 3.3 mmol/L (3.5-5.0)
[2019-03-28] MEDS ORDERED: NS 0.9% w/ 40 Meq KCL 1000 ML* 1,000 ML IV SCH (08:00)
[2019-03-28] MEDS: Levothyroxine TAB* 50 MCG TAB PO SCH (08:40)
[2019-03-28] MEDS: Butalb/Acetamin/Caff TAB* 1 TAB PO PRN ×2 (08:40→20:24)
[2019-03-28] MEDS: Pantoprazole IV* 40 MG IV SCH (08:41)
--- NOTE | 2019-03-28 13:44 | PN ---
Subjective Date of Service: 03/28/19 Interval History: Abdominal pain is resolving, passing gas since yesterday. Tolerating clear liquid. Complained of migraine yesterday, improved with Fioricet. Migraine for years, was on "migraine special medication" before, stopped years ago as she felt she would do fine. Frequent migraine attack every other day recently. Objective Active Medications: Acetaminophen (Tylenol Tab*) 650 mg PO Q4H PRN PRN Reason: PAIN-MILD/TEMP >/= 100.4 Acetaminophen/Butalbital/Caffeine (Fioricet Tab*) 1 tab PO Q6H PRN PRN Reason: MIGRAINE HEADACHE Last Admin: 03/28/19 08:40 Dose: 1 tab Heparin Sodium (Porcine) (Heparin Vial(*)) 5,000 units SUBCUT Q8HR [facility] Last Admin: 03/28/19 05:52 Dose: 5,000 units Potassium Chloride/Sodium Chloride (Ns 0.9% W/ 40 Meq Kcl 1000 Ml*) 1,000 mls @ 75 mls/hr IV PER RATE [facility] Stop: 03/28/19 21:19 Last Admin: 03/28/19 08:36 Dose: 75 mls/hr Levothyroxine Sodium (Synthroid Tab*) 50 mcg PO QAM [facility] Last Admin: 03/28/19 08:40 Dose: 50 mcg Morphine Sulfate (Morphine Inj (Syringe))*) 2 mg IV Q4H PRN PRN Reason: PAIN - MILD Ondansetron HCl (Zofran Inj*) 4 mg IV Q4H PRN PRN Reason: NAUSEA/VOMITING Pantoprazole Sodium (Protonix Iv*) 40 mg IV DAILY [facility] Last Admin: 03/28/19 08:41 Dose: 40 mg Propranolol HCl (Inderal Tab*) 40 mg PO DAILY [facility] Vital Signs - 8 hr 03/28/19 03/28/19 03/28/19 07:26 08:40 08:45 Temperature 97.8 F Pulse Rate 71 Respiratory 16 16 16 Rate Blood Pressure 123/51 (mmHg) O2 Sat by Pulse 98 Oximetry 03/28/19 03/28/19 11:26 11:39 Temperature 97.4 F Pulse Rate 71 Respiratory 16 16 Rate Blood Pressure 121/67 (mmHg) O2 Sat by Pulse 98 Oximetry Oxygen Devices in Use Now: None Exam: General -well, not in distress Eyes - PERRLA, EOM intact HEENT- no abnormality Lymph Nodes - No lymphadenopathy Cardiovascular -regular no m/r/g, no JVD, no carotid bruits Lungs - clear on auscultation, no use of acessory muscles, no crackles or wheezes. Skin - No rashes, skin warm and dry, no erythematous areas Abdomen - Hyperactive bowel sounds, abdomen soft, tender over bilateral lower abdomen, rebound tenderness+. Extremities -No cyanosis or clubbing over bilateral upper extremities. Musculo Skeletal - 5/5 strength, normal range of motion, no swollen or erythematous joints. Neurological Alert and oriented x 3, CN 2-12 grossly intact. Psychiatry- anxious, not depressed. Result Diagrams: 03/28/19 05:48 03/28/19 05:48 Additional Lab and Data: Lab Results 03/27/19 03/27/19 03/27/19 Range/Units 00:22 00:22 00:22 WBC 12.2 H (3.5-10.8) 10^3/uL RBC 4.30 (3.70-4.87) 10^6 /uL Hgb 12.5 (12.0-16.0) g/dL Hct 37 (35-47) % MCV 85 (80-97) fL MCH 29 (27-31) pg MCHC 34 (31-36) g/dL RDW 14 (10-15) % Plt Count 296 (150-450) 10^3/uL MPV 8.5 (7.4-10.4) fL Neut % (Auto) 82.2 % Lymph % (Auto) 13.0 % Bay % (Auto) 4.1 % Eos % (Auto) 0.2 % Baso % (Auto) 0.5 % Absolute Neuts (auto) 10.0 H (1.5-7.7) 10^3/ul Absolute Lymphs (auto) 1.6 (1.0-4.8) 10^3/ul Absolute Monos (auto) 0.5 (0-0.8) 10^3/ul Absolute Eos (auto) 0.0 (0-0.6) 10^3/ul Absolute Basos (auto) 0.1 (0-0.2) 10^3/ul Absolute Nucleated RBC 0.0 10^3/ul Nucleated RBC % 0.1 Sodium 142 (135-145) mmol/L Potassium 3.7 (3.5-5.0) mmol/L Chloride 105 (101-111) mmol/L Carbon Dioxide 27 (22-32) mmol/L Anion Gap 10 (2-11) mmol/L BUN 21 (6-24) mg/dL Creatinine 0.85 (0.51-0.95) mg/dL Est GFR ( Amer) 79.3 (>60) Est GFR (Non-Af Amer) 65.6 (>60) BUN/Creatinine Ratio 24.7 H (8-20) Glucose 146 H (70-100) mg/dL Lactic Acid 1.2 (0.5-2.0) mmol/L Calcium 9.7 (8.6-10.3) mg/dL Total Bilirubin 0.30 (0.2-1.0) mg/dL AST 12 L (13-39) U/L ALT 12 (7-52) U/L Alkaline Phosphatase 64 (34-104) U/L C-Reactive Protein 11.22 H (<8.01) mg/L Total Protein 7.5 (6.4-8.9) g/dL Albumin 4.5 (3.2-5.2) g/dL Globulin 3.0 (2-4) g/dL Albumin/Globulin Ratio 1.5 (1-3) Lipase 19 (11.0-82.0) U/L Assess/Plan/Problems-Billing Assessment: - Patient Problems (1) Small bowel obstruction due to adhesions Current Visit: No Status: Acute Code(s): K56.50 - INTESTNL ADHESIONS, UNSP TO PARTIAL VERSUS COMPLETE OBST SNOMED Code(s): 835429599 Comment: - This is Patient's 8th small bowel obstruction. Patient said discussion was made with surgeons before, was told not for surgical management unless emergency - continue clear fluid today, advance if continues to improve - IV fluid with potassium (2) Migraine Current Visit: Yes Status: Acute Code(s): G43.909 - MIGRAINE, UNSP, NOT INTRACTABLE, WITHOUT STATUS MIGRAINOSUS SNOMED Code(s): 85381494 Comment: - Frequent migraine attack currently only on advil - Prophylaxis discussed with patient, start propranolol today - continue fioricet for acute treatment. (3) Hematuria Current Visit: No Status: Acute Code(s): R31.9 - HEMATURIA, UNSPECIFIED SNOMED Code(s): 92602111 Comment: Microscopic Hematuria found, urine cs negative. outpatient followup. (4) Hypothyroidism Current Visit: No Status: Acute Code(s): E03.9 - HYPOTHYROIDISM, UNSPECIFIED SNOMED Code(s): 43795744 Comment: Continue levothyroxine. (5) Full code status Current Visit: No Status: Acute Code(s): Z78.9 - OTHER SPECIFIED HEALTH STATUS SNOMED Code(s): 017744280 (6) DVT prophylaxis Current Visit: No Status: Acute Code(s): QJE3021 - SNOMED Code(s): 008747088 Comment: Lovenox Status and Disposition: Inpatient Medicine. Attestation Documenting Resident: Rachel Diehl Supervising Physician: Adriana Ziegler Attestation: This service has been performed in part by a resident under the direction of a teaching physician.I, Adriana Ziegler, performed the service, or was physically present during the critical, or larsen portions of the service, furnished by the resident. I participated in the management of the patient.
[2019-03-29 05:45] LABS: ABS Eosinophils 0.1 10^3/ul (0-0.6); ABS Lymphocytes 2.4 10^3/ul (1.0-4.8); ABS Monocytes 0.4 10^3/ul (0-0.8); ABS Neutrophils 3.4 10^3/ul (1.5-7.7); Eosinophil % 0.8 %; Hematocrit 31 % (35-47); Hemoglobin 10.8 g/dL (12.0-16.0); Lymphocyte % 38.1 %; Mean Corpuscular HGB Conc 35 g/dL (31-36); Mean Corpuscular Hemoglobin 29 pg (27-31); Mean Corpuscular Volume 84 fL (80-97); Mean Platelet Volume 8.9 fL (7.4-10.4); Nucleated Red Blood Cells % 0.1; Platelet Count 230 10^3/uL (150-450); Red Cell Distribution Width 14 % (10-15); White Blood Count 6.3 10^3/uL (3.5-10.8)
[2019-03-29 05:57] LABS: BUN/Creatinine Ratio 10.7 (8-20); Calcium 8.3 mg/dL (8.6-10.3); EGFR African American 128.4 (>60); EGFR Non-African American 106.1 (>60); Potassium 3.3 mmol/L (3.5-5.0)
[2019-03-29] MEDS: Heparin VIAL(*) 5000 UNITS/ML VIAL (FIVE THOUSAND) SUBCUT SCH ×2 (06:16→14:04)
[2019-03-29] MEDS ORDERED: Propranolol TAB* 40 MG PO SCH (09:00)
[2019-03-29] MEDS: Levothyroxine TAB* 50 MCG TAB PO SCH (09:04)
[2019-03-29] MEDS: Pantoprazole IV* 40 MG IV SCH (09:04)
[2019-03-29 16:02] VITALS: BP 137/59
--- NOTE | 2019-03-29 17:58 | DS ---
Resident Discharge Summary Discharge Summary: Date of Admission: 03/28/19 Date of Discharge: 03/29/19 Admitting MD: Tiffany Muñoz MD Attending MD: Adriana Ziegler DO Primary Care Physician: Vikas Matias DO Home Medications Medication Instructions Recorded Confirmed Type Levothyroxine TAB* [Synthroid TAB*] 50 mcg PO QAM 10/22/17 03/27/19 History Losartan TAB* [Cozaar TAB*] 100 mg PO QAM 10/22/17 03/27/19 History Omeprazole CAP (NF) [Prilosec CAP* 20 mg PO QAM 10/22/17 03/27/19 History 20 MG] Hydrochlorothiazide TAB* 25 mg PO DAILY 03/27/19 03/27/19 History [Hydrodiuril TAB*] Propranolol TAB* [Inderal TAB*] 40 mg PO DAILY #30 tab 03/29/19 Rx Disposition: Home Condition: Stable to home Primary Diagnosis: 1. Small Bowel Obstruction 2. Migraine Attack Secondary Diagnosis: 1. Hypothyroidism. 2. Hypertension. 3. Gastroesophageal reflux disease. 4. History of multiple small-bowel obstructions 5. Osteoporosis. Diagnostic Imaging: CT abd/pelvis 03/27/19: 1. dilated loops of small bowel in the left side of abdomen with a gradual transition from dilated to nondilated small bowel in the lower mid abdomen at the site of a small bowel anastomotic suture line, it represent small bowel obstruction or ileus. 2. chronic diverticulosis without evidence of diverticulitis. Pertinent Laboratory Results: CBC: WBC 12.2. 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 Of note, she has more frequent small bowel obstruction recent years, with 2 episodes last year requiring hospitalization. Issues during this hospitalization include: 1. Partial small bowel obstruction due to surgical adhesions In view of the nature of partial bowel obstruction and previous good response with medical treatment, she was started on medical treatment. She received medical management including bowel rest, hydration, pain control during the hospitalization. She started to pass flatus on D2 admission, and passed stool D3 admission. She tolerated advanced diet well. On the day of discharge, she had no abdominal pain, she passed stool the day before, she tolerated full liquid diet without any problems. Physical examination, she is resting comfortably, no in distress, no abdominal tenderness, heart, lung, extremity, muscularskeletal examination is all negative. 2. Migraine attack Patient had migraine attack second day of admission. It improved within one day with Fioricet. Noted she had more frequent migraine attacks recently, several times per week, she was not on any prophylactic medication for migraine. Discussed with patient the concern of getting status migrainosus without proper treatment and preventive measures, propranolol was started this admission. Further outpatient followup for migraine is high recommended. Follow Up Instructions: Patient was advised on follow up with primary care Dr. Matias on Apr 03 1pm. It would be beneficial to let her see a surgeon to discuss possible interventions to prevent frequent small bowel obstruction due to surgical adhesions. She was also advised to follow up with primary care for her frequent migraine attack, propranolol was started this admission to help prevent frequent attacks. In case of an emergency or after clinic hours, please go to your nearest Emergency Department. You may also call the [facility] receiving operator at . Attestation Documenting Resident: Rachel Diehl Supervising Physician: Adriana Ziegler Attestation: This service has been performed in part by a resident under the direction of a teaching physician.I, Adriana Ziegler, performed the service, or was physically present during the critical, or larsen portions of the service, furnished by the resident. I participated in the management of the patient.
[2019-03-30] MEDS ORDERED: Pantoprazole TAB * 40 MG TAB PO SCH (09:00)
== END 2019-03-29 18:42 | disposition home or self-care (01) | DRG 390 ==
LOC: ED 23:29 → SSU 03-27 07:38 → OBSVTOIN 03-28 11:00
PROVIDERS: ADMIT Internal Medicine; ATTEND Internal Medicine
DX: K56.51 Intestinal adhesions [bands], with partial obstruction (principal); I10 Essential (primary) hypertension; E03.9 Hypothyroidism, unspecified; K21.9 Gastro-esophageal reflux disease without esophagitis; M81.0 Age-related osteoporosis without current pathological fracture; J30.2 Other seasonal allergic rhinitis; M19.90 Unspecified osteoarthritis, unspecified site; H40.9 Unspecified glaucoma; H26.9 Unspecified cataract; G43.909 Migraine, unspecified, not intractable, without status migrainosus; F41.9 Anxiety disorder, unspecified; F32.9 Major depressive disorder, single episode, unspecified; K57.30 Diverticulosis of large intestine without perforation or abscess without bleeding; R31.29 Other microscopic hematuria; R82.71 Bacteriuria; F43.10 Post-traumatic stress disorder, unspecified; Z90.710 Acquired absence of both cervix and uterus; Z87.891 Personal history of nicotine dependence; Z88.6 Allergy status to analgesic agent; Z88.8 Allergy status to other drugs, medicaments and biological substances; Z82.49 Family history of ischemic heart disease and other diseases of the circulatory system
CPT/HCPCS: 36415; 74177; 80048; 80053; 81003; 81015; 83605; 83690; 85025; 86140; 87086; 96361; 96372; 96374; 96375; 99284; A9270-GY; G0378; J1644; J2270; J2405; Q9967